=== PATIENT | female | born 1960 | race Caucasian/White ===

== ENCOUNTER 2023-01-27 18:08 | Inpatient (IN) | payer BC, OTHER ==
[2023-01-27 18:18] VITALS: BMI 27.4
[2023-01-27] MEDS ORDERED: ACETAMINOPHEN 1000 MG/100 ML BAG IVPB ONE (20:47)
[2023-01-27 20:52] LABS: BASO % 0.2 % (0-2.0); EOS % 0.1 % (0-4.5); HEMATOCRIT 31.3 % (32.4-45.2); HEMOGLOBIN 9.6 GM/dL (10.7-15.3); LYMPH % 5.3 % (8-40); MCHC 30.8 g/dl (32.0-36.0); MEAN CELL VOLUME 81.4 fl (80-96); MEAN PLT VOLUME 6.4 fl (7.5-11.1); MONO % 4.2 % (3.8-10.2); NEUT % 90.2 % (42.8-82.8); PLATELET COUNT 625 10^3/uL (134-434); RBC 3.84 M/mm3 (3.60-5.2); RDW 17.7 % (11.6-15.6); WHITE BLOOD COUNT 11.8 K/mm3 (4.0-10.0)
[2023-01-27 20:55] LABS: EPI CELLS 22 /uL (0-25.1); HYALINE CASTS 0 /uL (0-3.1); URINE APPEARANCE CLEAR; URINE BACTERIA 82 /uL (0-1359); URINE BILIRUBIN NEGATIVE (NEGATIVE); URINE COLOR YELLOW; URINE GLUCOSE (UA) NEGATIVE (NEGATIVE); URINE KETONE NEGATIVE (NEGATIVE); URINE LEUK ESTERASE TRACE (NEGATIVE); URINE NITRITE NEGATIVE (NEGATIVE); URINE PROTEIN TRACE (NEGATIVE); URINE RBC 13 /uL (0-23.9); URINE WBC 21 /uL (0-25.8)
[2023-01-27] MEDS ORDERED: ACETAMINOPHEN INJECTION 100 ML IVPB ONE (20:57)
[2023-01-27] MEDS ORDERED: PIPERACILLIN/TAZOB 3.375 GM 3.375 GM in DEXTROSE 5%-WATER - 50 ML IVPB ONE (20:58)
[2023-01-27] MEDS ORDERED: VANCOMYCIN 1 GM in D5W (PRE-DOCKED) 1,000 MG/250 ML (RESTRICTED TO ID ONLY IVPB ONE (21:02)
[2023-01-27] MEDS ORDERED: LACTATED RINGERS SOLUTION 1,000 ML/1,000 ML INFUS.BAG IV STA (21:03)
[2023-01-27 21:07] LABS: INR 1.53 (0.83-1.09); PROTHROMBIN TIME (PATIENT) 17.7 SEC (9.7-13.0)
[2023-01-27] MEDS ORDERED: PIPERACILLIN/TAZOB 3.375 GM 3.375 GM/50 ML BAG IVPB ONE (21:08)
[2023-01-27] MEDS ORDERED: VANCOMYCIN/WATER FOR INJ (PEG) 1,000 MG/200 ML BAG IVPB ONE (21:08)
[2023-01-27 21:10] LABS: ACTIVATED PTT 46.4 SECONDS (25.2-36.5)
[2023-01-27 21:13] LABS: CHLORIDE 105 mmol/L (98-107); POTASSIUM 3.6 mmol/L (3.5-5.1); SODIUM 141 mmol/L (136-145)
[2023-01-27 21:16] LABS: ALBUMIN 2.3 g/dl (3.4-5.0); ANION GAP 9 MMOL/L (8-16); CALCIUM 8.6 mg/dL (8.5-10.1); CO2 27 mmol/L (21-32); GLUCOSE,RANDOM 98 mg/dL (74-106); LIPASE 25 U/L (73-393)
[2023-01-27 21:19] LABS: CREATININE 0.9 mg/dL (0.55-1.3); SGOT/AST 19 U/L (15-37); SGPT/ALT 23 U/L (13-61)
[2023-01-27 21:21] LABS: BILIRUBIN,TOTAL 0.6 mg/dL (0.2-1); TOT PROT 6.4 g/dl (6.4-8.2)
[2023-01-27 21:22] LABS: ALK PHOS 148 U/L (45-117)
[2023-01-28] MEDS ORDERED: morphine CARPU-JECT 4 MG/1 ML DISP.SYRIN IVPUSH ONE (00:09)
[2023-01-28] MEDS ORDERED: morphine SULFATE 4 MG/ML VIAL ONE (00:26)
[2023-01-28] MEDS: ACETAMINOPHEN 1000 MG/100 ML BAG IVPB PRN ×2 (03:40→12:53)
[2023-01-28] MEDS ORDERED: SODIUM CHLORIDE 1,000 ML IV SCH (04:30)
[2023-01-28] MEDS ORDERED: PIPERACILLIN/TAZOB 3.375 GM 3.375 GM/50 ML BAG IVPB ONE (05:52)
[2023-01-28] MEDS: PIPERACILLIN/TAZOB 3.375 GM 3.375 GM in DEXTROSE 5%-WATER - 50 ML IVPB SCH ×5 (06:05→19:32)
[2023-01-28 06:45] LABS: MCH 25.9 pg (25.7-33.7); MCHC 31.4 g/dl (32.0-36.0); MEAN CELL VOLUME 82.5 fl (80-96); MEAN PLT VOLUME 6.7 fl (7.5-11.1); PLATELET COUNT 674 10^3/uL (134-434); RBC 3.88 M/mm3 (3.60-5.2); RDW 17.7 % (11.6-15.6); WHITE BLOOD COUNT 25.5 K/mm3 (4.0-10.0)
[2023-01-28 06:52] LABS: POTASSIUM 3.8 mmol/L (3.5-5.1)
[2023-01-28 06:55] LABS: BLOOD UREA NITROGEN 14.5 mg/dL (7-18); MAGNESIUM 1.9 mg/dL (1.8-2.4)
[2023-01-28 06:58] LABS: CREATININE 1.1 mg/dL (0.55-1.3); PHOSPHOROUS 5.7 mg/dL (2.5-4.9)
[2023-01-28 07:00] LABS: BILIRUBIN,TOTAL 0.9 mg/dL (0.2-1); TOT PROT 5.8 g/dl (6.4-8.2)
[2023-01-28 07:01] LABS: LACTIC ACID 2.8 mmol/L (0.4-2.0)
[2023-01-28 09:22] LABS: ERYTHROCYTE SEDIMENTATION RATE 65 mm/hr (0-30)
[2023-01-28] MEDS ORDERED: LACTATED RINGERS SOLUTION 1000 ML INFUS.BAG IV ONE (09:22)
[2023-01-28] MEDS ORDERED: VANCOMYCIN 1 GM in D5W (PRE-DOCKED) 1,000 MG/250 ML (RESTRICTED TO ID ONLY IVPB SCH (10:00)
[2023-01-28] MEDS ORDERED: VANCOMYCIN 1,000 MG in DEXTROSE 5%-WATER - 250 ML IVPB SCH (10:00)
[2023-01-28] MEDS ORDERED: VANCOMYCIN/WATER FOR INJ (PEG) 1,000 MG/200 ML BAG IVPB SCH (10:03)
[2023-01-28] MEDS ORDERED: MIDAZOLAM HCL 2 MG/2 ML SINGLE DOSE VIAL ONE (10:36)
[2023-01-28] MEDS ORDERED: FENTANYL CITRATE/PF 50 MCG/ML VIAL ONE (10:36)
[2023-01-28] MEDS ORDERED: MIDAZOLAM HCL 2 MG/2 ML SINGLE DOSE VIAL IVPUSH ONE (11:40)
[2023-01-28] MEDS ORDERED: FENTANYL CITRATE/PF 50 MCG/ML VIAL IVPUSH ONE (11:40)
[2023-01-28] MEDS: FLUCONAZOLE 200 MG/NS 100 ML IVPB SCH (18:40)
[2023-01-28] MEDS: SIMETHICONE 80 MG TAB.CHEW (FP) PO PRN (18:40)
[2023-01-28] MEDS ORDERED: DEXTROSE 5%-LACTATED RINGERS 1,000 ML IV SCH ×2 (18:45)
[2023-01-29] MEDS: PIPERACILLIN/TAZOB 3.375 GM 3.375 GM in DEXTROSE 5%-WATER - 50 ML IVPB SCH ×3 (01:51→21:59)
[2023-01-29] MEDS: SIMETHICONE 80 MG TAB.CHEW (FP) PO PRN ×2 (03:19→10:05)
[2023-01-29] MEDS: ACETAMINOPHEN 1000 MG/100 ML BAG IVPB PRN (04:44)
[2023-01-29 08:21] LABS: HEMATOCRIT 27.5 % (32.4-45.2); HEMOGLOBIN 8.6 GM/dL (10.7-15.3); MCH 25.2 pg (25.7-33.7); MCHC 31.2 g/dl (32.0-36.0); MEAN CELL VOLUME 80.8 fl (80-96); MEAN PLT VOLUME 6.7 fl (7.5-11.1); PLATELET COUNT 595 10^3/uL (134-434); RBC 3.41 M/mm3 (3.60-5.2); RDW 17.5 % (11.6-15.6)
[2023-01-29 08:28] LABS: CHLORIDE 108 mmol/L (98-107); POTASSIUM 3.1 mmol/L (3.5-5.1); SODIUM 142 mmol/L (136-145)
[2023-01-29 08:31] LABS: CALCIUM 7.8 mg/dL (8.5-10.1)
[2023-01-29 08:32] LABS: ANION GAP 10 MMOL/L (8-16); CO2 25 mmol/L (21-32)
[2023-01-29 08:33] LABS: ALBUMIN 1.6 g/dl (3.4-5.0); BLOOD UREA NITROGEN 29.4 mg/dL (7-18); GLUCOSE,RANDOM 109 mg/dL (74-106)
[2023-01-29 08:35] LABS: CREATININE 1.2 mg/dL (0.55-1.3); SGOT/AST 20 U/L (15-37); SGPT/ALT 16 U/L (13-61)
[2023-01-29 08:36] LABS: CHOLESTEROL < 50 mg/dL (50-200); PHOSPHOROUS 3.9 mg/dL (2.5-4.9)
[2023-01-29 08:37] LABS: HDL CHOLESTEROL 26 mg/dL (40-60); TOT PROT 5.1 g/dl (6.4-8.2)
[2023-01-29 08:38] LABS: BILIRUBIN,TOTAL 2.6 mg/dL (0.2-1); LDL CHOLESTEROL (ONLY SJRH) 9 mg/dL (5-100)
[2023-01-29 08:39] LABS: ALK PHOS 121 U/L (45-117)
[2023-01-29] MEDS ORDERED: POTASSIUM CHLORIDE ORAL LIQUID 20 MEQ/15 ML PO ONE (09:15)
[2023-01-29] MEDS ORDERED: DOCUSATE SODIUM 100 MG CAPSULE (FP) PO SCH (10:00)
[2023-01-29 11:52] LABS: GAMMA GLUTAMYL TRANSPEPTIDASE 46 U/L (5-85)
[2023-01-29] MEDS: PANTOPRAZOLE SODIUM 40 MG VIAL IVPUSH SCH (12:06)
[2023-01-29] MEDS ORDERED: ROCURONIUM BROMIDE 50 MG/5 ML SYRINGE ONE ×2 (14:33→15:25)
[2023-01-29] MEDS ORDERED: MIDAZOLAM HCL 2 MG/2 ML SINGLE DOSE VIAL ONE ×2 (14:33→16:29)
[2023-01-29] MEDS ORDERED: PROPOFOL 20 ML ONE (14:33)
[2023-01-29] MEDS ORDERED: SUCCINYLCHOLINE CHLORIDE 200 MG/10 ML SYRINGE ONE (14:33)
[2023-01-29] MEDS ORDERED: LIDOCAINE HCL/PF 2% SDV 5ML VIAL ONE (14:57)
[2023-01-29] MEDS ORDERED: DEXAMETHASONE SOD PHOSPHATE 4 MG/1 ML VIAL ONE (15:07)
[2023-01-29] MEDS ORDERED: ONDANSETRON 4 MG/2 ML VIAL ONE (15:07)
[2023-01-29] MEDS: ALBUTEROL SO4 2.5/IPRATROPIUM 0.5 INH SOL 3 ML VIAL.NEB. NEB SCH ×2 (15:10→20:30)
[2023-01-29] MEDS ORDERED: HYDROmorphone HCl 2 MG/ML VIAL ONE (15:26)
[2023-01-29] MEDS ORDERED: HEPARIN NA (PORCINE) 5,000 UNITS/ML 1ML VIAL ONE (16:34)
[2023-01-29] MEDS ORDERED: INDOCYANINE GREEN 25 MG/10 ML VIAL IVPUSH ONE (17:03)
[2023-01-29 17:30] LABS: ARTERIAL BLD GAS O2 SATURATION 99.6 % (95-98); ARTERIAL BLOOD GAS BASE EXCESS -4.7 mmol/L (-2-2); ARTERIAL BLOOD GAS PO2 252.1 mmHg (80-100); ARTERIAL BLOOD GAS pH 7.376 (7.350-7.450)
[2023-01-29] MEDS ORDERED: NOREPINEPHRINE 0.9 % NACL 8 MG/250 ML BAG IVPB SCH (19:15)
[2023-01-29] MEDS ORDERED: LACTATED RINGERS SOLUTION 1,000 ML IV SCH (20:30)
[2023-01-29 21:23] LABS: HEMATOCRIT 24.7 % (32.4-45.2); HEMOGLOBIN 7.7 GM/dL (10.7-15.3); MCH 24.7 pg (25.7-33.7); MCHC 31.2 g/dl (32.0-36.0); MEAN CELL VOLUME 79.3 fl (80-96); MEAN PLT VOLUME 6.4 fl (7.5-11.1); PLATELET COUNT 588 10^3/uL (134-434); RBC 3.11 M/mm3 (3.60-5.2); RDW 17.7 % (11.6-15.6)
[2023-01-29 21:32] LABS: INR 1.91 (0.83-1.09)
[2023-01-29 21:32] LABS: WHITE BLOOD COUNT 46.3 K/mm3 (4.0-10.0)
[2023-01-29 21:34] LABS: ACTIVATED PTT 84.2 SECONDS (25.2-36.5)
[2023-01-29 21:46] LABS: ARTERIAL BLD GAS O2 SATURATION 98.5 % (95-98); ARTERIAL BLOOD GAS BASE EXCESS -2.8 mmol/L (-2-2); ARTERIAL BLOOD GAS PO2 139.3 mmHg (80-100); ARTERIAL BLOOD GAS pH 7.295 (7.350-7.450)
[2023-01-29 21:46] LABS: POTASSIUM 4.2 mmol/L (3.5-5.1)
[2023-01-29 21:47] LABS: CALCIUM 7.2 mg/dL (8.5-10.1)
[2023-01-29 21:48] LABS: BLOOD UREA NITROGEN 29.4 mg/dL (7-18); MAGNESIUM 1.9 mg/dL (1.8-2.4)
[2023-01-29 21:50] LABS: VENT MODE A/C; VENT RATE 12
[2023-01-29 21:50] LABS: BILIRUBIN,DIRECT 1.1 mg/dL (0.0-0.2)
[2023-01-29 21:51] LABS: PHOSPHOROUS 4.5 mg/dL (2.5-4.9)
[2023-01-29 21:52] LABS: BILIRUBIN,TOTAL 1.6 mg/dL (0.2-1); TOT PROT 3.6 g/dl (6.4-8.2)
[2023-01-29 21:53] LABS: ALBUMIN 1.1 g/dl (3.4-5.0)
[2023-01-29] MEDS: HEPARIN NA (PORCINE) 5,000 UNITS/ML 1ML VIAL SQ SCH ×2 (21:59→22:32)
[2023-01-29] MEDS: FLUCONAZOLE 200 MG/NS 100 ML IVPB SCH (22:00)
[2023-01-29] MEDS: KCL 10 MEQ IVPB 10 MEQ/100 ML INFUS.BAG IVPB SCH (22:00)
[2023-01-29] MEDS ORDERED: LACTATED RINGERS SOLUTION 1,000 ML/1,000 ML INFUS.BAG IV STA (22:27)
[2023-01-29] MEDS ORDERED: FENTANYL IVPB 500 MCG/100 ML BAG IVPB SCH (22:30)
[2023-01-29] MEDS ORDERED: FENTANYL NS IVPB 500 MCG/100 ML BAG IVPB ONE (22:31)
[2023-01-30] MEDS ORDERED: LACTATED RINGERS SOLUTION 1,000 ML IV SCH ×3 (00:03→20:39)
[2023-01-30] MEDS ORDERED: NOREPINEPHRINE BITARTRATE 4 MG/4 ML ML IV ONE (00:54)
[2023-01-30] MEDS ORDERED: LACTATED RINGERS SOLUTION 1,000 ML/1,000 ML INFUS.BAG IV ONE (00:54)
[2023-01-30] MEDS ORDERED: PHYTONADIONE 10 MG/1 ML AMP IVPB SCH (01:00)
[2023-01-30] MEDS ORDERED: NOREPINEPHRINE BITARTRATE 4,000 MCG in DEXTROSE 5%-WATER - 496 ML IV SCH (01:00)
[2023-01-30] MEDS: PIPERACILLIN/TAZOB 3.375 GM 3.375 GM in DEXTROSE 5%-WATER - 50 ML IVPB SCH ×3 (01:07→17:23)
[2023-01-30] MEDS ORDERED: MIDAZOLAM HCL 2 MG/2 ML SINGLE DOSE VIAL IVPUSH PRN (04:40)
[2023-01-30] MEDS ORDERED: fentaNYL CITRATE 250 MCG/5 ML VIAL ONE (04:49)
[2023-01-30] MEDS: HEPARIN NA (PORCINE) 5,000 UNITS/ML 1ML VIAL SQ SCH ×3 (05:04→21:10)
[2023-01-30] MEDS ORDERED: FENTANYL CITRATE/PF 50 MCG/ML VIAL IVPUSH PRN (06:21)
[2023-01-30] MEDS: FENTANYL NS IVPB 500 MCG/100 ML BAG IVPB SCH (06:32)
[2023-01-30 06:33] LABS: ARTERIAL BLD GAS O2 SATURATION 98.8 % (95-98); ARTERIAL BLOOD GAS PO2 146.2 mmHg (80-100); ARTERIAL BLOOD GAS pH 7.378 (7.350-7.450)
[2023-01-30 07:05] LABS: VENT MODE V-A/C; VENT RATE 16
[2023-01-30 08:06] LABS: HEMATOCRIT 26.7 % (32.4-45.2); HEMOGLOBIN 8.4 GM/dL (10.7-15.3); MCH 25.7 pg (25.7-33.7); MCHC 31.6 g/dl (32.0-36.0); MEAN CELL VOLUME 81.4 fl (80-96); MEAN PLT VOLUME 7.1 fl (7.5-11.1); PLATELET COUNT 612 10^3/uL (134-434); RBC 3.28 M/mm3 (3.60-5.2); RDW 17.1 % (11.6-15.6)
[2023-01-30 08:11] LABS: WHITE BLOOD COUNT 35.9 K/mm3 (4.0-10.0)
[2023-01-30 08:38] LABS: POTASSIUM 4.1 mmol/L (3.5-5.1)
[2023-01-30 08:40] LABS: CALCIUM 7.1 mg/dL (8.5-10.1)
[2023-01-30 08:41] LABS: ALBUMIN 1.2 g/dl (3.4-5.0); BLOOD UREA NITROGEN 32.1 mg/dL (7-18); MAGNESIUM 2.1 mg/dL (1.8-2.4)
[2023-01-30 08:44] LABS: CREATININE 1.2 mg/dL (0.55-1.3); PHOSPHOROUS 4.1 mg/dL (2.5-4.9)
[2023-01-30] MEDS: ALBUTEROL SO4 2.5/IPRATROPIUM 0.5 INH SOL 3 ML VIAL.NEB. NEB SCH ×4 (08:45→20:37)
[2023-01-30 08:46] LABS: BILIRUBIN,TOTAL 1.7 mg/dL (0.2-1)
[2023-01-30 08:53] LABS: ANISOCYTOSIS 0; HELMET CELLS 0; HOWELL-JOLLY BODIES 0; MACROCYTOSIS 0; OVALOCYTE 0; ROULEAU 0; SICKELED CELLS 0; TARGET CELLS 0; TEAR DROP CELLS 0; TOXIC GRANULATION 0
[2023-01-30] MEDS: PANTOPRAZOLE SODIUM 40 MG VIAL IVPUSH SCH (10:06)
[2023-01-30] MEDS: FLUCONAZOLE 200 MG/NS 100 ML IVPB SCH (11:03)
[2023-01-30] MEDS ORDERED: LACTATED RINGERS SOLUTION 1,000 ML/1,000 ML INFUS.BAG IV STA (11:54)
[2023-01-31] MEDS: PIPERACILLIN/TAZOB 3.375 GM 3.375 GM in DEXTROSE 5%-WATER - 50 ML IVPB SCH ×3 (01:16→17:09)
[2023-01-31] MEDS: FENTANYL NS IVPB 500 MCG/100 ML BAG IVPB SCH ×2 (02:00→06:38)
[2023-01-31] MEDS: HEPARIN NA (PORCINE) 5,000 UNITS/ML 1ML VIAL SQ SCH ×3 (06:03→21:20)
[2023-01-31] MEDS: ALBUTEROL SO4 2.5/IPRATROPIUM 0.5 INH SOL 3 ML VIAL.NEB. NEB SCH ×4 (07:43→19:37)
[2023-01-31 08:05] LABS: HEMATOCRIT 22.7 % (32.4-45.2); HEMOGLOBIN 7.3 GM/dL (10.7-15.3); MCHC 32.3 g/dl (32.0-36.0); MEAN CELL VOLUME 80.5 fl (80-96); MEAN PLT VOLUME 6.9 fl (7.5-11.1); PLATELET COUNT 470 10^3/uL (134-434); RBC 2.82 M/mm3 (3.60-5.2); RDW 17.4 % (11.6-15.6); WHITE BLOOD COUNT 20.8 K/mm3 (4.0-10.0)
[2023-01-31 08:07] LABS: POTASSIUM 3.6 mmol/L (3.5-5.1)
[2023-01-31 08:09] LABS: CALCIUM 7.3 mg/dL (8.5-10.1)
[2023-01-31 08:10] LABS: ALBUMIN 1.2 g/dl (3.4-5.0); MAGNESIUM 2.2 mg/dL (1.8-2.4)
[2023-01-31 08:12] LABS: CREATININE 0.8 mg/dL (0.55-1.3)
[2023-01-31 08:13] LABS: PHOSPHOROUS 2.4 mg/dL (2.5-4.9)
[2023-01-31 08:14] LABS: BILIRUBIN,TOTAL 0.6 mg/dL (0.2-1); TOT PROT 4.2 g/dl (6.4-8.2)
[2023-01-31] MEDS: FLUCONAZOLE 200 MG/NS 100 ML IVPB SCH (09:30)
[2023-01-31] MEDS: PANTOPRAZOLE SODIUM 40 MG VIAL IVPUSH SCH (09:30)
[2023-01-31 09:45] LABS: ANISOCYTOSIS 2+; MACROCYTOSIS 0
[2023-01-31] MEDS: ACETAMINOPHEN 1000 MG/100 ML BAG IVPB PRN (13:33)
[2023-01-31] MEDS ORDERED: LORazepam 2 MG/ML SDV VIAL IVPUSH ONE (15:21)
[2023-01-31] MEDS ORDERED: AMINO ACIDS 4.25%/D5W 1,000 ML IV SCH ×2 (15:30→16:41)
[2023-01-31] MEDS: LACTATED RINGERS SOLUTION 1,000 ML IV SCH (15:35)
[2023-01-31] MEDS ORDERED: POTASSIUM PHOSPHATE 15 MM in DEXTROSE 5%-WATER - 250 ML IVPB ONE (16:40)
[2023-01-31 17:01] LABS: BASO % 0.1 % (0-2.0); EOS % 0.5 % (0-4.5); HEMATOCRIT 22.9 % (32.4-45.2); HEMOGLOBIN 7.2 GM/dL (10.7-15.3); LYMPH % 5.7 % (8-40); MCH 25.1 pg (25.7-33.7); MCHC 31.4 g/dl (32.0-36.0); MEAN CELL VOLUME 79.9 fl (80-96); MEAN PLT VOLUME 6.6 fl (7.5-11.1); MONO % 2.9 % (3.8-10.2); NEUT % 90.8 % (42.8-82.8); PLATELET COUNT 469 10^3/uL (134-434); RBC 2.86 M/mm3 (3.60-5.2); RDW 17.5 % (11.6-15.6); WHITE BLOOD COUNT 20.1 K/mm3 (4.0-10.0)
[2023-01-31 17:32] LABS: ANISOCYTOSIS 3+; MACROCYTOSIS 0; TARGET CELLS 2+
[2023-02-01] MEDS: PIPERACILLIN/TAZOB 3.375 GM 3.375 GM in DEXTROSE 5%-WATER - 50 ML IVPB SCH ×3 (01:35→17:23)
[2023-02-01] MEDS: HEPARIN NA (PORCINE) 5,000 UNITS/ML 1ML VIAL SQ SCH ×3 (05:13→21:16)
[2023-02-01] MEDS ORDERED: AMIODARONE HCL 150 MG/3 ML VIAL IVPUSH ONE (05:29)
[2023-02-01] MEDS ORDERED: AMIODARONE IN DEXTROSE,ISO-OSM 150 MG/100 ML BAG ONE (05:43)
[2023-02-01] MEDS ORDERED: AMIODARONE HCL INJECTION 150 MG in DEXTROSE 5%-WATER - 100 ML IVPB ONE (05:45)
[2023-02-01] MEDS ORDERED: AMIODARONE IN DEXTROSE,ISO-OSM 360 MG/200 ML BAG IV SCH ×3 (05:45→14:00)
[2023-02-01 07:48] LABS: HEMATOCRIT 24.5 % (32.4-45.2); HEMOGLOBIN 7.7 GM/dL (10.7-15.3); MCH 25.4 pg (25.7-33.7); MCHC 31.3 g/dl (32.0-36.0); MEAN CELL VOLUME 81.4 fl (80-96); MEAN PLT VOLUME 6.9 fl (7.5-11.1); PLATELET COUNT 472 10^3/uL (134-434); RBC 3.02 M/mm3 (3.60-5.2); RDW 17.5 % (11.6-15.6); WHITE BLOOD COUNT 20.5 K/mm3 (4.0-10.0)
[2023-02-01] MEDS: ALBUTEROL SO4 2.5/IPRATROPIUM 0.5 INH SOL 3 ML VIAL.NEB. NEB SCH ×4 (08:05→20:45)
[2023-02-01 08:07] LABS: POTASSIUM 3.4 mmol/L (3.5-5.1)
[2023-02-01 08:10] LABS: CALCIUM 7.5 mg/dL (8.5-10.1)
[2023-02-01 08:11] LABS: ALBUMIN 1.3 g/dl (3.4-5.0); BLOOD UREA NITROGEN 18.6 mg/dL (7-18); MAGNESIUM 1.9 mg/dL (1.8-2.4)
[2023-02-01 08:14] LABS: CREATININE 0.6 mg/dL (0.55-1.3); PHOSPHOROUS 1.8 mg/dL (2.5-4.9)
[2023-02-01 08:15] LABS: BILIRUBIN,TOTAL 0.7 mg/dL (0.2-1)
[2023-02-01] MEDS ORDERED: KCL 10 MEQ IVPB 10 MEQ/100 ML INFUS.BAG IVPB SCH (08:15)
[2023-02-01 08:16] LABS: TOT PROT 4.6 g/dl (6.4-8.2)
[2023-02-01 08:43] LABS: ANISOCYTOSIS 0; MACROCYTOSIS 0
[2023-02-01] MEDS ORDERED: dilTIAZem HCL 50 MG/10 ML - 10 ML VIAL IVPUSH ONE ×2 (08:48)
[2023-02-01] MEDS ORDERED: POTASSIUM PHOSPHATE 30 MM in SODIUM CHLORIDE 500 ML IVPB ONE (09:00)
[2023-02-01] MEDS: PANTOPRAZOLE SODIUM 40 MG VIAL IVPUSH SCH (09:31)
[2023-02-01] MEDS: FLUCONAZOLE 200 MG/NS 100 ML IVPB SCH (10:24)
[2023-02-01] MEDS: AMIODARONE IN DEXTROSE,ISO-OSM 360 MG/200 ML BAG IV SCH (14:15)
[2023-02-01] MEDS: WATER FOR INJ STERILE IV SCH ×2 (14:52→16:36)
[2023-02-01] MEDS: MULTIVIT IV SCH ×2 (14:52→16:36)
[2023-02-01] MEDS: [UNRECOGNIZED DRUG - OTHER] IV SCH ×2 (14:52→16:36)
[2023-02-01] MEDS: ACETAMINOPHEN 1000 MG/100 ML BAG IVPB PRN (16:02)
[2023-02-01] MEDS: LACTATED RINGERS SOLUTION 1,000 ML IV SCH ×2 (16:02→16:14)
[2023-02-02] MEDS: AMIODARONE IN DEXTROSE,ISO-OSM 360 MG/200 ML BAG IV SCH
[2023-02-02] MEDS: PIPERACILLIN/TAZOB 3.375 GM 3.375 GM in DEXTROSE 5%-WATER - 50 ML IVPB SCH ×3 (02:06→17:13)
[2023-02-02] MEDS: HEPARIN NA (PORCINE) 5,000 UNITS/ML 1ML VIAL SQ SCH ×3 (05:42→22:16)
[2023-02-02 07:48] LABS: HEMATOCRIT 23.6 % (32.4-45.2); HEMOGLOBIN 7.6 GM/dL (10.7-15.3); MCH 26.7 pg (25.7-33.7); MEAN CELL VOLUME 83.4 fl (80-96); MEAN PLT VOLUME 7.1 fl (7.5-11.1); PLATELET COUNT 467 10^3/uL (134-434); RBC 2.83 M/mm3 (3.60-5.2); RDW 17.4 % (11.6-15.6); WHITE BLOOD COUNT 17.5 K/mm3 (4.0-10.0)
[2023-02-02 08:12] LABS: POTASSIUM 3.2 mmol/L (3.5-5.1)
[2023-02-02 08:16] LABS: CALCIUM 7.3 mg/dL (8.5-10.1)
[2023-02-02 08:17] LABS: ALBUMIN 1.3 g/dl (3.4-5.0); BLOOD UREA NITROGEN 13.7 mg/dL (7-18); MAGNESIUM 1.6 mg/dL (1.8-2.4)
[2023-02-02 08:20] LABS: CREATININE 0.5 mg/dL (0.55-1.3); PHOSPHOROUS 1.8 mg/dL (2.5-4.9)
[2023-02-02 08:21] LABS: BILIRUBIN,TOTAL 0.5 mg/dL (0.2-1); TOT PROT 4.4 g/dl (6.4-8.2)
[2023-02-02] MEDS: ALBUTEROL SO4 2.5/IPRATROPIUM 0.5 INH SOL 3 ML VIAL.NEB. NEB SCH ×4 (08:39→21:14)
[2023-02-02] MEDS: PANTOPRAZOLE SODIUM 40 MG VIAL IVPUSH SCH (09:06)
[2023-02-02] MEDS: FLUCONAZOLE 200 MG/NS 100 ML IVPB SCH (10:55)
[2023-02-02] MEDS ORDERED: MAGNESIUM SULF 50% (8.12 MEQ/2 ML-1 GM VIAL) IVPB ONE (12:30)
[2023-02-02] MEDS ORDERED: KCL 20 MEQ PREMIX BAG 100 ML IVPB ONE (13:00)
[2023-02-02] MEDS ORDERED: POTASSIUM PHOSPHATE 30 MM in DEXTROSE 5%-WATER - 250 ML IVPB ONE (13:00)
[2023-02-02] MEDS: LYTES/YERBA SANTA 60 ML SPRAY MM SCH ×2 (14:20→21:41)
[2023-02-02] MEDS ORDERED: [UNRECOGNIZED DRUG - OTHER] IVPB SCH (16:00)
[2023-02-02] MEDS ORDERED: POTASSIUM PHOSPHATE IVPB SCH (16:00)
[2023-02-02] MEDS ORDERED: POTASSIUM CHLORIDE IVPB SCH (16:00)
[2023-02-02] MEDS ORDERED: SODIUM CHLORIDE IVPB SCH (16:00)
[2023-02-02] MEDS: LACTATED RINGERS SOLUTION 1,000 ML IV SCH (17:13)
[2023-02-02] MEDS ORDERED: FAT EMUL/SOY/MCT/OLIV/FISH OIL 250 ML IV SCH (22:00)
[2023-02-03] MEDS ORDERED: LACTATED RINGERS SOLUTION 1,000 ML IV SCH (04:07)
[2023-02-03] MEDS ORDERED: ACETAMINOPHEN 1000 MG/100 ML BAG IVPB PRN (04:07)
[2023-02-03] MEDS: PIPERACILLIN/TAZOB 3.375 GM 3.375 GM in DEXTROSE 5%-WATER - 50 ML IVPB SCH ×3 (05:44→17:22)
[2023-02-03] MEDS: HEPARIN NA (PORCINE) 5,000 UNITS/ML 1ML VIAL SQ SCH ×3 (06:53→21:20)
[2023-02-03 07:34] LABS: HEMATOCRIT 23.1 % (32.4-45.2); HEMOGLOBIN 7.7 GM/dL (10.7-15.3); MCH 28.3 pg (25.7-33.7); MCHC 33.2 g/dl (32.0-36.0); MEAN CELL VOLUME 85.3 fl (80-96); PLATELET COUNT 481 10^3/uL (134-434); RDW 17.5 % (11.6-15.6); WHITE BLOOD COUNT 14.9 K/mm3 (4.0-10.0)
[2023-02-03 07:51] LABS: POTASSIUM 3.6 mmol/L (3.5-5.1)
[2023-02-03 07:56] LABS: BLOOD UREA NITROGEN 10.5 mg/dL (7-18)
[2023-02-03 07:57] LABS: MAGNESIUM 1.7 mg/dL (1.8-2.4)
[2023-02-03 07:59] LABS: CREATININE 0.4 mg/dL (0.55-1.3)
[2023-02-03] MEDS: ALBUTEROL SO4 2.5/IPRATROPIUM 0.5 INH SOL 3 ML VIAL.NEB. NEB SCH ×4 (08:34→21:15)
[2023-02-03 08:43] LABS: ANISOCYTOSIS 2+; MACROCYTOSIS 0
[2023-02-03] MEDS ORDERED: MAGNESIUM SULF 50% (8.12 MEQ/2 ML-1 GM VIAL) IVPB ONE (08:56)
[2023-02-03] MEDS ORDERED: METOPROLOL TARTRATE 25 MG TABLET (FP) PO ONE (08:56)
[2023-02-03] MEDS ORDERED: POTASSIUM CHLORIDE ORAL LIQUID 20 MEQ/15 ML PO ONE (08:57)
[2023-02-03] MEDS: FLUCONAZOLE 200 MG/NS 100 ML IVPB SCH (10:02)
[2023-02-03] MEDS: PANTOPRAZOLE SODIUM 40 MG VIAL IVPUSH SCH (10:02)
[2023-02-03] MEDS: LYTES/YERBA SANTA 60 ML SPRAY MM SCH ×2 (10:02→21:24)
[2023-02-03] MEDS ORDERED: [UNRECOGNIZED DRUG - OTHER] IVPB SCH ×2 (16:00)
[2023-02-03] MEDS ORDERED: POTASSIUM PHOSPHATE IVPB SCH ×2 (16:00)
[2023-02-03] MEDS ORDERED: SODIUM CHLORIDE IVPB SCH ×2 (16:00)
[2023-02-03] MEDS ORDERED: POTASSIUM CHLORIDE IVPB SCH ×2 (16:00)
[2023-02-03] MEDS: METOPROLOL TARTRATE 25 MG TABLET (FP) PO SCH (21:20)
[2023-02-03] MEDS ORDERED: FAT EMUL/SOY/MCT/OLIV/FISH OIL 250 ML IV SCH ×2 (22:00)
[2023-02-03] MEDS: SIMETHICONE 80 MG TAB.CHEW (FP) PO PRN (23:49)
[2023-02-04] MEDS: PIPERACILLIN/TAZOB 3.375 GM 3.375 GM in DEXTROSE 5%-WATER - 50 ML IVPB SCH ×3 (01:59→17:57)
[2023-02-04] MEDS: HEPARIN NA (PORCINE) 5,000 UNITS/ML 1ML VIAL SQ SCH ×3 (05:54→21:42)
[2023-02-04 07:36] LABS: POTASSIUM 3.7 mmol/L (3.5-5.1)
[2023-02-04 07:38] LABS: CALCIUM 7.6 mg/dL (8.5-10.1)
[2023-02-04 07:39] LABS: ALBUMIN 1.5 g/dl (3.4-5.0); MAGNESIUM 1.9 mg/dL (1.8-2.4)
[2023-02-04 07:42] LABS: CREATININE 0.4 mg/dL (0.55-1.3); PHOSPHOROUS 2.4 mg/dL (2.5-4.9)
[2023-02-04 07:43] LABS: BILIRUBIN,TOTAL 0.5 mg/dL (0.2-1); TOT PROT 4.9 g/dl (6.4-8.2)
[2023-02-04] MEDS: ALBUTEROL SO4 2.5/IPRATROPIUM 0.5 INH SOL 3 ML VIAL.NEB. NEB SCH ×4 (08:15→20:56)
[2023-02-04] MEDS: FLUCONAZOLE 200 MG/NS 100 ML IVPB SCH (10:04)
[2023-02-04] MEDS: LYTES/YERBA SANTA 60 ML SPRAY MM SCH ×2 (10:04→21:43)
[2023-02-04] MEDS: PANTOPRAZOLE SODIUM 40 MG VIAL IVPUSH SCH (10:04)
[2023-02-04] MEDS: METOPROLOL TARTRATE 25 MG TABLET (FP) PO SCH ×2 (10:04→21:42)
[2023-02-04] MEDS ORDERED: POTASSIUM CHLORIDE ORAL LIQUID 20 MEQ/15 ML PO ONE (10:30)
[2023-02-04] MEDS ORDERED: SODIUM CHLORIDE IVPB SCH (16:00)
[2023-02-04] MEDS ORDERED: [UNRECOGNIZED DRUG - OTHER] IVPB SCH (16:00)
[2023-02-04] MEDS ORDERED: POTASSIUM CHLORIDE IVPB SCH (16:00)
[2023-02-04] MEDS ORDERED: POTASSIUM PHOSPHATE IVPB SCH (16:00)
[2023-02-04] MEDS ORDERED: POTASSIUM PHOSPHATE 15 MM in DEXTROSE 5%-WATER - 250 ML IVPB ONE (16:37)
[2023-02-04] MEDS: SIMETHICONE 80 MG TAB.CHEW (FP) PO PRN (19:33)
[2023-02-04] MEDS ORDERED: FAT EMUL/SOY/MCT/OLIV/FISH OIL 250 ML IV SCH (22:00)
[2023-02-05] MEDS: SIMETHICONE 80 MG TAB.CHEW (FP) PO PRN ×2 (02:03→22:53)
[2023-02-05] MEDS: PIPERACILLIN/TAZOB 3.375 GM 3.375 GM in DEXTROSE 5%-WATER - 50 ML IVPB SCH ×3 (02:03→17:22)
[2023-02-05] MEDS: HEPARIN NA (PORCINE) 5,000 UNITS/ML 1ML VIAL SQ SCH ×3 (05:57→22:52)
[2023-02-05] MEDS ORDERED: ACETAMINOPHEN 1000 MG/100 ML BAG IVPB PRN (07:39)
[2023-02-05] MEDS: ALBUTEROL SO4 2.5/IPRATROPIUM 0.5 INH SOL 3 ML VIAL.NEB. NEB SCH ×4 (08:10→20:15)
[2023-02-05 08:58] LABS: POTASSIUM 4.5 mmol/L (3.5-5.1)
[2023-02-05 09:02] LABS: ALBUMIN 1.6 g/dl (3.4-5.0); BLOOD UREA NITROGEN 10.8 mg/dL (7-18); CALCIUM 7.5 mg/dL (8.5-10.1); MAGNESIUM 1.9 mg/dL (1.8-2.4)
[2023-02-05 09:05] LABS: CREATININE 0.4 mg/dL (0.55-1.3); PHOSPHOROUS 2.8 mg/dL (2.5-4.9)
[2023-02-05 09:06] LABS: TOT PROT 5.3 g/dl (6.4-8.2)
[2023-02-05 09:07] LABS: BILIRUBIN,TOTAL 0.5 mg/dL (0.2-1)
[2023-02-05] MEDS: PANTOPRAZOLE SODIUM 40 MG VIAL IVPUSH SCH (09:20)
[2023-02-05] MEDS: METOPROLOL TARTRATE 25 MG TABLET (FP) PO SCH ×2 (09:21→22:53)
[2023-02-05] MEDS: LYTES/YERBA SANTA 60 ML SPRAY MM SCH ×2 (09:30→22:11)
[2023-02-05] MEDS: FLUCONAZOLE 200 MG/NS 100 ML IVPB SCH (11:22)
[2023-02-05] MEDS ORDERED: POTASSIUM PHOSPHATE IVPB SCH (16:00)
[2023-02-05] MEDS ORDERED: SODIUM CHLORIDE IVPB SCH (16:00)
[2023-02-05] MEDS ORDERED: MAGNESIUM SULFATE IVPB SCH (16:00)
[2023-02-05] MEDS ORDERED: [UNRECOGNIZED DRUG - OTHER] IVPB SCH (16:00)
[2023-02-05] MEDS ORDERED: FAT EMUL/SOY/MCT/OLIV/FISH OIL 250 ML IV SCH (22:00)
[2023-02-06] MEDS: PIPERACILLIN/TAZOB 3.375 GM 3.375 GM in DEXTROSE 5%-WATER - 50 ML IVPB SCH ×3 (01:55→17:43)
[2023-02-06] MEDS: HEPARIN NA (PORCINE) 5,000 UNITS/ML 1ML VIAL SQ SCH ×3 (06:19→22:02)
[2023-02-06] MEDS: ALBUTEROL SO4 2.5/IPRATROPIUM 0.5 INH SOL 3 ML VIAL.NEB. NEB SCH ×4 (07:50→19:51)
[2023-02-06 10:04] LABS: HEMATOCRIT 28.5 % (32.4-45.2); HEMOGLOBIN 9.1 GM/dL (10.7-15.3); MCH 27.5 pg (25.7-33.7); MCHC 31.8 g/dl (32.0-36.0); MEAN CELL VOLUME 86.4 fl (80-96); MEAN PLT VOLUME 7.3 fl (7.5-11.1); PLATELET COUNT 700 10^3/uL (134-434); RDW 18.4 % (11.6-15.6); WHITE BLOOD COUNT 16.2 K/mm3 (4.0-10.0)
[2023-02-06 10:32] LABS: POTASSIUM 4.1 mmol/L (3.5-5.1)
[2023-02-06 10:33] LABS: ANISOCYTOSIS 0; MACROCYTOSIS 0
[2023-02-06 10:35] LABS: CHOLESTEROL 90 mg/dL (50-200)
[2023-02-06 10:36] LABS: CALCIUM 7.7 mg/dL (8.5-10.1); LDL CHOLESTEROL (ONLY SJRH) 28 mg/dL (5-100)
[2023-02-06 10:37] LABS: ALBUMIN 1.8 g/dl (3.4-5.0); BLOOD UREA NITROGEN 11.2 mg/dL (7-18); MAGNESIUM 1.9 mg/dL (1.8-2.4)
[2023-02-06 10:38] LABS: HDL CHOLESTEROL 47 mg/dL (40-60)
[2023-02-06 10:40] LABS: CREATININE 0.5 mg/dL (0.55-1.3); PHOSPHOROUS 2.3 mg/dL (2.5-4.9)
[2023-02-06 10:41] LABS: BILIRUBIN,TOTAL 0.5 mg/dL (0.2-1)
[2023-02-06 10:43] LABS: TOT PROT 5.7 g/dl (6.4-8.2)
[2023-02-06] MEDS: METOPROLOL TARTRATE 25 MG TABLET (FP) PO SCH ×2 (11:00→22:03)
[2023-02-06] MEDS: LYTES/YERBA SANTA 60 ML SPRAY MM SCH ×2 (11:01→22:05)
[2023-02-06] MEDS: FLUCONAZOLE 200 MG/NS 100 ML IVPB SCH (11:02)
[2023-02-06] MEDS: PANTOPRAZOLE SODIUM 40 MG VIAL IVPUSH SCH (11:21)
[2023-02-06] MEDS ORDERED: DIPHENOXYLATE 2.5/ATROPINE.025 1 COMBO TABLET PO PRN (12:16)
[2023-02-06] MEDS ORDERED: POTASSIUM PHOSPHATE 15 MM in DEXTROSE 5%-WATER - 250 ML IVPB ONE (13:00)
[2023-02-06] MEDS: PSYLLIUM 5.85 GM PACKET PO SCH ×4 (14:54→22:16)
[2023-02-07] MEDS: PIPERACILLIN/TAZOB 3.375 GM 3.375 GM in DEXTROSE 5%-WATER - 50 ML IVPB SCH ×3 (03:05→17:11)
[2023-02-07] MEDS: SIMETHICONE 80 MG TAB.CHEW (FP) PO PRN (05:03)
[2023-02-07] MEDS: HEPARIN NA (PORCINE) 5,000 UNITS/ML 1ML VIAL SQ SCH ×3 (05:03→22:03)
[2023-02-07] MEDS: PSYLLIUM 5.85 GM PACKET PO SCH ×4 (05:12→22:04)
[2023-02-07] MEDS: ALBUTEROL SO4 2.5/IPRATROPIUM 0.5 INH SOL 3 ML VIAL.NEB. NEB SCH ×4 (08:28→19:58)
[2023-02-07 09:33] LABS: BASO % 0.6 % (0-2.0); EOS % 1.1 % (0-4.5); HEMOGLOBIN 8.9 GM/dL (10.7-15.3); LYMPH % 10.6 % (8-40); MCH 27.2 pg (25.7-33.7); MCHC 31.7 g/dl (32.0-36.0); MEAN CELL VOLUME 85.9 fl (80-96); MEAN PLT VOLUME 7.1 fl (7.5-11.1); MONO % 6.7 % (3.8-10.2); PLATELET COUNT 720 10^3/uL (134-434); RBC 3.26 M/mm3 (3.60-5.2); RDW 19.1 % (11.6-15.6); WHITE BLOOD COUNT 13.5 K/mm3 (4.0-10.0)
[2023-02-07 09:47] LABS: POTASSIUM 4.4 mmol/L (3.5-5.1)
[2023-02-07 09:56] LABS: CALCIUM 8.2 mg/dL (8.5-10.1)
[2023-02-07 09:57] LABS: ALBUMIN 1.8 g/dl (3.4-5.0); BLOOD UREA NITROGEN 9.9 mg/dL (7-18)
[2023-02-07 09:58] LABS: CREATININE 0.5 mg/dL (0.55-1.3); MAGNESIUM 1.9 mg/dL (1.8-2.4)
[2023-02-07] MEDS: METOPROLOL TARTRATE 25 MG TABLET (FP) PO SCH ×2 (09:58→22:03)
[2023-02-07] MEDS: PANTOPRAZOLE SODIUM 40 MG VIAL IVPUSH SCH (09:58)
[2023-02-07 10:00] LABS: BILIRUBIN,TOTAL 0.4 mg/dL (0.2-1); TOT PROT 5.6 g/dl (6.4-8.2)
[2023-02-07] MEDS: LYTES/YERBA SANTA 60 ML SPRAY MM SCH ×2 (12:21→22:05)
[2023-02-07] MEDS: SODIUM HYPOCHLORITE 0.25%- 473 ML BULK BOTTLE TP SCH (12:21)
[2023-02-07] MEDS: metroNIDAZOLE 250 MG TABLET PO SCH ×2 (14:45→22:03)
[2023-02-07] MEDS ORDERED: BENZOCAINE 20% 57 GM BOTTLE TP ONE (15:47)
[2023-02-07] MEDS ORDERED: BENZOIN/ALOE VERA/STORAX/TOLU 58 ML BOTTLE TP ONE (15:56)
[2023-02-07] MEDS ORDERED: PIPERACILLIN/TAZOBACTAM 3.375 GM VIAL IVPB ONE (17:00)
[2023-02-08] MEDS: PIPERACILLIN/TAZOB 3.375 GM 3.375 GM in DEXTROSE 5%-WATER - 50 ML IVPB SCH ×3 (01:58→17:47)
[2023-02-08] MEDS: metroNIDAZOLE 250 MG TABLET PO SCH ×3 (07:29→22:50)
[2023-02-08] MEDS: PSYLLIUM 5.85 GM PACKET PO SCH ×3 (07:30→19:29)
[2023-02-08] MEDS: HEPARIN NA (PORCINE) 5,000 UNITS/ML 1ML VIAL SQ SCH ×3 (07:30→22:51)
[2023-02-08] MEDS: ALBUTEROL SO4 2.5/IPRATROPIUM 0.5 INH SOL 3 ML VIAL.NEB. NEB SCH ×4 (07:36→20:00)
[2023-02-08] MEDS: METOPROLOL TARTRATE 25 MG TABLET (FP) PO SCH ×2 (10:24→22:51)
[2023-02-08] MEDS: PANTOPRAZOLE 40 MG TABLET PO SCH (10:25)
[2023-02-08 10:41] LABS: BASO % 0.8 % (0-2.0); EOS % 2.1 % (0-4.5); HEMATOCRIT 27.9 % (32.4-45.2); HEMOGLOBIN 8.8 GM/dL (10.7-15.3); LYMPH % 9.4 % (8-40); MCH 27.3 pg (25.7-33.7); MCHC 31.7 g/dl (32.0-36.0); MEAN CELL VOLUME 86.1 fl (80-96); MEAN PLT VOLUME 6.8 fl (7.5-11.1); MONO % 6.9 % (3.8-10.2); NEUT % 80.8 % (42.8-82.8); PLATELET COUNT 866 10^3/uL (134-434); RBC 3.24 M/mm3 (3.60-5.2); RDW 19.8 % (11.6-15.6); WHITE BLOOD COUNT 11.9 K/mm3 (4.0-10.0)
[2023-02-08 10:59] LABS: POTASSIUM 3.9 mmol/L (3.5-5.1)
[2023-02-08 11:04] LABS: ALBUMIN 1.8 g/dl (3.4-5.0); CALCIUM 8.4 mg/dL (8.5-10.1)
[2023-02-08 11:05] LABS: BLOOD UREA NITROGEN 11.3 mg/dL (7-18)
[2023-02-08 11:07] LABS: CREATININE 0.6 mg/dL (0.55-1.3)
[2023-02-08 11:09] LABS: BILIRUBIN,TOTAL 0.3 mg/dL (0.2-1); TOT PROT 5.7 g/dl (6.4-8.2)
[2023-02-08] MEDS: SODIUM HYPOCHLORITE 0.25%- 473 ML BULK BOTTLE TP SCH (14:44)
[2023-02-08] MEDS: LYTES/YERBA SANTA 60 ML SPRAY MM SCH (15:29)
[2023-02-08] MEDS ORDERED: ACETAMINOPHEN 500 MG TABLET (FP) PO PRN (15:58)
[2023-02-09] MEDS: PSYLLIUM 5.85 GM PACKET PO SCH ×2 (00:03→06:37)
[2023-02-09] MEDS: LYTES/YERBA SANTA 60 ML SPRAY MM SCH ×3 (00:14→22:18)
[2023-02-09] MEDS: PIPERACILLIN/TAZOB 3.375 GM 3.375 GM in DEXTROSE 5%-WATER - 50 ML IVPB SCH ×3 (03:12→18:57)
[2023-02-09] MEDS: SIMETHICONE 80 MG TAB.CHEW (FP) PO PRN ×2 (03:12→22:18)
[2023-02-09] MEDS: HEPARIN NA (PORCINE) 5,000 UNITS/ML 1ML VIAL SQ SCH ×3 (06:37→22:17)
[2023-02-09] MEDS: ALBUTEROL SO4 2.5/IPRATROPIUM 0.5 INH SOL 3 ML VIAL.NEB. NEB SCH ×4 (07:24→20:15)
[2023-02-09 09:01] LABS: HEMATOCRIT 27.4 % (32.4-45.2); LYMPH % 10.9 % (8-40); MCH 27.6 pg (25.7-33.7); MCHC 32.9 g/dl (32.0-36.0); MEAN CELL VOLUME 83.9 fl (80-96); MEAN PLT VOLUME 6.3 fl (7.5-11.1); MONO % 7.6 % (3.8-10.2); NEUT % 77.5 % (42.8-82.8); PLATELET COUNT 834 10^3/uL (134-434); RBC 3.26 M/mm3 (3.60-5.2); RDW 20.7 % (11.6-15.6); WHITE BLOOD COUNT 11.5 K/mm3 (4.0-10.0)
[2023-02-09 09:19] LABS: POTASSIUM 4.1 mmol/L (3.5-5.1)
[2023-02-09 09:20] LABS: POTASSIUM 4.2 mmol/L (3.5-5.1)
[2023-02-09 09:21] LABS: CALCIUM 8.6 mg/dL (8.5-10.1)
[2023-02-09 09:22] LABS: ALBUMIN 1.9 g/dl (3.4-5.0); BLOOD UREA NITROGEN 10.1 mg/dL (7-18); CALCIUM 8.7 mg/dL (8.5-10.1)
[2023-02-09 09:25] LABS: CREATININE 0.6 mg/dL (0.55-1.3)
[2023-02-09 09:26] LABS: CREATININE 0.6 mg/dL (0.55-1.3); TOT PROT 5.9 g/dl (6.4-8.2)
[2023-02-09 09:27] LABS: BILIRUBIN,TOTAL 0.4 mg/dL (0.2-1)
[2023-02-09 09:32] LABS: ANISOCYTOSIS 3+; MACROCYTOSIS 0; TARGET CELLS 0
[2023-02-09] MEDS: metroNIDAZOLE 250 MG TABLET PO SCH ×3 (10:53→22:17)
[2023-02-09] MEDS: PANTOPRAZOLE 40 MG TABLET PO SCH (10:54)
[2023-02-09] MEDS: METOPROLOL TARTRATE 25 MG TABLET (FP) PO SCH ×2 (10:54→22:18)
[2023-02-09] MEDS: SODIUM HYPOCHLORITE 0.25%- 473 ML BULK BOTTLE TP SCH (10:54)
[2023-02-09] MEDS ORDERED: ACETAMINOPHEN 1000 MG/100 ML BAG IVPB PRN (13:11)
[2023-02-10] MEDS: PIPERACILLIN/TAZOB 3.375 GM 3.375 GM in DEXTROSE 5%-WATER - 50 ML IVPB SCH ×2 (01:50→10:26)
[2023-02-10] MEDS: HEPARIN NA (PORCINE) 5,000 UNITS/ML 1ML VIAL SQ SCH ×3 (06:12→21:09)
[2023-02-10] MEDS: metroNIDAZOLE 250 MG TABLET PO SCH ×4 (06:13→21:09)
[2023-02-10] MEDS: METOPROLOL TARTRATE 25 MG TABLET (FP) PO SCH ×2 (10:26→21:09)
[2023-02-10] MEDS: PANTOPRAZOLE 40 MG TABLET PO SCH (10:26)
[2023-02-10] MEDS: LYTES/YERBA SANTA 60 ML SPRAY MM SCH ×2 (10:27→21:10)
[2023-02-10] MEDS: SODIUM HYPOCHLORITE 0.25%- 473 ML BULK BOTTLE TP SCH (10:28)
[2023-02-10] MEDS ORDERED: LACTATED RINGERS SOLUTION 1,000 ML/1,000 ML INFUS.BAG IV SCH (10:45)
[2023-02-10 13:44] LABS: BASO % 0.9 % (0-2.0); EOS % 3.2 % (0-4.5); HEMATOCRIT 29.8 % (32.4-45.2); HEMOGLOBIN 9.9 GM/dL (10.7-15.3); MCH 27.7 pg (25.7-33.7); MCHC 33.2 g/dl (32.0-36.0); MEAN CELL VOLUME 83.7 fl (80-96); MEAN PLT VOLUME 6.3 fl (7.5-11.1); MONO % 8.4 % (3.8-10.2); NEUT % 73.5 % (42.8-82.8); PLATELET COUNT 967 10^3/uL (134-434); RBC 3.56 M/mm3 (3.60-5.2); RDW 20.8 % (11.6-15.6); WHITE BLOOD COUNT 10.5 K/mm3 (4.0-10.0)
[2023-02-10 14:04] LABS: POTASSIUM 4.2 mmol/L (3.5-5.1)
[2023-02-10 14:06] LABS: CALCIUM 8.4 mg/dL (8.5-10.1)
[2023-02-10 14:07] LABS: BLOOD UREA NITROGEN 9.2 mg/dL (7-18)
[2023-02-10 14:10] LABS: CREATININE 0.6 mg/dL (0.55-1.3)
[2023-02-10 14:11] LABS: BILIRUBIN,TOTAL 0.2 mg/dL (0.2-1); TOT PROT 6.2 g/dl (6.4-8.2)
[2023-02-10] MEDS: AMPICILLIN NA/SULBACTAM NA 3 GM in SODIUM CHLORIDE 100 ML IVPB SCH ×2 (15:50→21:08)
[2023-02-10] MEDS ORDERED: METOPROLOL TARTRATE 25 MG TABLET (FP) PO ONE (16:16)
[2023-02-10] MEDS: SIMETHICONE 80 MG TAB.CHEW (FP) PO PRN (22:30)
[2023-02-11] MEDS: AMPICILLIN NA/SULBACTAM NA 3 GM in SODIUM CHLORIDE 100 ML IVPB SCH ×4 (02:46→21:00)
[2023-02-11] MEDS: metroNIDAZOLE 250 MG TABLET PO SCH ×4 (05:05→21:01)
[2023-02-11] MEDS: METOPROLOL TARTRATE 25 MG TABLET (FP) PO SCH ×4 (05:05→21:01)
[2023-02-11] MEDS: HEPARIN NA (PORCINE) 5,000 UNITS/ML 1ML VIAL SQ SCH ×3 (05:06→21:01)
[2023-02-11] MEDS: PANTOPRAZOLE 40 MG TABLET PO SCH (09:30)
[2023-02-11] MEDS: SODIUM HYPOCHLORITE 0.25%- 473 ML BULK BOTTLE TP SCH (09:31)
[2023-02-11] MEDS: LYTES/YERBA SANTA 60 ML SPRAY MM SCH ×2 (09:32→21:06)
[2023-02-11] MEDS ORDERED: DIPHENOXYLATE 2.5/ATROPINE.025 1 COMBO TABLET PO PRN (11:04)
[2023-02-11] MEDS: ZINC OXIDE 20% TOPICAL OINTMENT 30 GM TUBE TP SCH ×3 (11:23→21:05)
[2023-02-11 11:49] LABS: HEMATOCRIT 31.7 % (32.4-45.2); HEMOGLOBIN 10.2 GM/dL (10.7-15.3); MCH 26.9 pg (25.7-33.7); MCHC 32.1 g/dl (32.0-36.0); MEAN PLT VOLUME 6.2 fl (7.5-11.1); PLATELET COUNT 976 10^3/uL (134-434); RBC 3.77 M/mm3 (3.60-5.2); WHITE BLOOD COUNT 10.6 K/mm3 (4.0-10.0)
[2023-02-11 12:23] LABS: POTASSIUM 4.4 mmol/L (3.5-5.1)
[2023-02-11 12:25] LABS: ALBUMIN 1.9 g/dl (3.4-5.0); BLOOD UREA NITROGEN 8.3 mg/dL (7-18); CALCIUM 8.8 mg/dL (8.5-10.1); MAGNESIUM 2.1 mg/dL (1.8-2.4)
[2023-02-11 12:28] LABS: CREATININE 0.6 mg/dL (0.55-1.3); PHOSPHOROUS 2.3 mg/dL (2.5-4.9)
[2023-02-11 12:29] LABS: BILIRUBIN,TOTAL 0.2 mg/dL (0.2-1); TOT PROT 6.1 g/dl (6.4-8.2)
[2023-02-11] MEDS ORDERED: NAPH,MB-DB/K PH,MBDB POWDER PACKET PO ONE (14:38)
[2023-02-11] MEDS ORDERED: SODIUM CHLORIDE 1,000 ML IV STA (15:58)
[2023-02-11] MEDS ORDERED: SODIUM CHLORIDE 500 ML IV STA (15:59)
[2023-02-11] MEDS ORDERED: METOPROLOL TARTRATE 5 MG/5 ML VIAL IVPUSH ONE (18:36)
[2023-02-11] MEDS: SIMETHICONE 80 MG TAB.CHEW (FP) PO PRN (21:02)
[2023-02-11] MEDS ORDERED: METOPROLOL TARTRATE 25 MG TABLET (FP) PO SCH (22:00)
[2023-02-12] MEDS: AMPICILLIN NA/SULBACTAM NA 3 GM in SODIUM CHLORIDE 100 ML IVPB SCH ×4 (03:16→21:37)
[2023-02-12] MEDS: metroNIDAZOLE 250 MG TABLET PO SCH ×3 (05:52→21:37)
[2023-02-12] MEDS: METOPROLOL TARTRATE 25 MG TABLET (FP) PO SCH ×3 (05:52→21:37)
[2023-02-12] MEDS: HEPARIN NA (PORCINE) 5,000 UNITS/ML 1ML VIAL SQ SCH (05:52)
[2023-02-12] MEDS: ZINC OXIDE 20% TOPICAL OINTMENT 30 GM TUBE TP SCH ×3 (05:53→21:37)
[2023-02-12 07:54] LABS: BASO % 1.5 % (0-2.0); EOS % 2.9 % (0-4.5); HEMATOCRIT 31.9 % (32.4-45.2); HEMOGLOBIN 10.3 GM/dL (10.7-15.3); LYMPH % 18.4 % (8-40); MCHC 32.4 g/dl (32.0-36.0); MEAN CELL VOLUME 86.3 fl (80-96); MEAN PLT VOLUME 6.6 fl (7.5-11.1); MONO % 8.6 % (3.8-10.2); NEUT % 68.6 % (42.8-82.8); PLATELET COUNT 979 10^3/uL (134-434); RBC 3.69 M/mm3 (3.60-5.2); RDW 21.3 % (11.6-15.6); WHITE BLOOD COUNT 6.9 K/mm3 (4.0-10.0)
[2023-02-12 08:40] LABS: POTASSIUM 4.2 mmol/L (3.5-5.1)
[2023-02-12 08:43] LABS: ALBUMIN 1.9 g/dl (3.4-5.0); BLOOD UREA NITROGEN 9.4 mg/dL (7-18); CALCIUM 8.5 mg/dL (8.5-10.1)
[2023-02-12 08:45] LABS: MAGNESIUM 1.9 mg/dL (1.8-2.4)
[2023-02-12 08:46] LABS: CREATININE 0.6 mg/dL (0.55-1.3); PHOSPHOROUS 3.1 mg/dL (2.5-4.9)
[2023-02-12 08:48] LABS: BILIRUBIN,TOTAL 0.4 mg/dL (0.2-1); TOT PROT 6.1 g/dl (6.4-8.2)
[2023-02-12] MEDS: LYTES/YERBA SANTA 60 ML SPRAY MM SCH ×2 (09:55→21:37)
[2023-02-12] MEDS: SODIUM HYPOCHLORITE 0.25%- 473 ML BULK BOTTLE TP SCH (09:55)
[2023-02-12] MEDS: PANTOPRAZOLE 40 MG TABLET PO SCH (09:55)
[2023-02-12 12:30] LABS: INR 1.27 (0.83-1.09); PROTHROMBIN TIME (PATIENT) 14.7 SEC (9.7-13.0)
[2023-02-12] MEDS ORDERED: MIDAZOLAM HCL 2 MG/2 ML SINGLE DOSE VIAL ONE (14:18)
[2023-02-12] MEDS ORDERED: FENTANYL CITRATE/PF 50 MCG/ML VIAL ONE (14:19)
[2023-02-13] MEDS: AMPICILLIN NA/SULBACTAM NA 3 GM in SODIUM CHLORIDE 100 ML IVPB SCH ×4 (03:58→21:45)
[2023-02-13] MEDS: ZINC OXIDE 20% TOPICAL OINTMENT 30 GM TUBE TP SCH ×3 (05:28→21:47)
[2023-02-13] MEDS: metroNIDAZOLE 250 MG TABLET PO SCH ×3 (05:57→21:46)
[2023-02-13] MEDS: METOPROLOL TARTRATE 25 MG TABLET (FP) PO SCH ×3 (05:58→21:46)
[2023-02-13 07:05] LABS: BASO % 1.4 % (0-2.0); EOS % 2.7 % (0-4.5); HEMATOCRIT 29.4 % (32.4-45.2); HEMOGLOBIN 9.5 GM/dL (10.7-15.3); LYMPH % 16.8 % (8-40); MCH 27.7 pg (25.7-33.7); MCHC 32.3 g/dl (32.0-36.0); MEAN CELL VOLUME 85.8 fl (80-96); MEAN PLT VOLUME 6.3 fl (7.5-11.1); MONO % 8.5 % (3.8-10.2); NEUT % 70.6 % (42.8-82.8); PLATELET COUNT 803 10^3/uL (134-434); RBC 3.43 M/mm3 (3.60-5.2); WHITE BLOOD COUNT 7.1 K/mm3 (4.0-10.0)
[2023-02-13 07:25] LABS: POTASSIUM 3.9 mmol/L (3.5-5.1)
[2023-02-13 07:34] LABS: CALCIUM 8.5 mg/dL (8.5-10.1)
[2023-02-13 07:35] LABS: ALBUMIN 1.8 g/dl (3.4-5.0); BLOOD UREA NITROGEN 9.3 mg/dL (7-18)
[2023-02-13 07:38] LABS: CREATININE 0.6 mg/dL (0.55-1.3)
[2023-02-13 07:40] LABS: TOT PROT 5.8 g/dl (6.4-8.2)
[2023-02-13 07:41] LABS: BILIRUBIN,TOTAL 0.4 mg/dL (0.2-1)
[2023-02-13 09:17] LABS: ANISOCYTOSIS 2+; MACROCYTOSIS 0
[2023-02-13] MEDS: PANTOPRAZOLE 40 MG TABLET PO SCH (10:12)
[2023-02-13] MEDS: SODIUM HYPOCHLORITE 0.25%- 473 ML BULK BOTTLE TP SCH (10:14)
[2023-02-13] MEDS: LYTES/YERBA SANTA 60 ML SPRAY MM SCH ×2 (10:14→21:47)
[2023-02-13] MEDS ORDERED: SODIUM CHLORIDE 250 ML IV STA ×2 (12:18→12:19)
[2023-02-13] MEDS: HEPARIN NA (PORCINE) 5,000 UNITS/ML 1ML VIAL SQ SCH ×2 (13:02→21:46)
[2023-02-13] MEDS: SIMETHICONE 80 MG TAB.CHEW (FP) PO PRN (15:02)
[2023-02-13] MEDS: ACETAMINOPHEN 325 MG TABLET (FP) PO PRN (19:15)
[2023-02-13] MEDS: LATANOPROST 0.005% OPHTH SOLN 2.5ML BOTTLE OU SCH (21:47)
[2023-02-13] MEDS ORDERED: LATANOPROST 0.005% OPHTH SOLN 2.5ML BOTTLE OU SCH (22:00)
[2023-02-14] MEDS: AMPICILLIN NA/SULBACTAM NA 3 GM in SODIUM CHLORIDE 100 ML IVPB SCH ×4 (02:42→22:18)
[2023-02-14] MEDS: SIMETHICONE 80 MG TAB.CHEW (FP) PO PRN ×2 (05:53→22:19)
[2023-02-14] MEDS: HEPARIN NA (PORCINE) 5,000 UNITS/ML 1ML VIAL SQ SCH ×3 (06:02→22:18)
[2023-02-14] MEDS: ZINC OXIDE 20% TOPICAL OINTMENT 30 GM TUBE TP SCH ×3 (06:16→22:19)
[2023-02-14 08:23] LABS: BASO % 1.3 % (0-2.0); LYMPH % 18.6 % (8-40); MCH 27.8 pg (25.7-33.7); MCHC 32.4 g/dl (32.0-36.0); MEAN CELL VOLUME 85.9 fl (80-96); MEAN PLT VOLUME 6.7 fl (7.5-11.1); MONO % 7.9 % (3.8-10.2); NEUT % 70.2 % (42.8-82.8); PLATELET COUNT 766 10^3/uL (134-434); RBC 3.61 M/mm3 (3.60-5.2); WHITE BLOOD COUNT 6.5 K/mm3 (4.0-10.0)
[2023-02-14] MEDS: metroNIDAZOLE 250 MG TABLET PO SCH ×3 (08:23→22:18)
[2023-02-14] MEDS: METOPROLOL TARTRATE 25 MG TABLET (FP) PO SCH ×3 (08:23→22:19)
[2023-02-14 09:17] LABS: POTASSIUM 3.3 mmol/L (3.5-5.1)
[2023-02-14 09:27] LABS: BILIRUBIN,TOTAL 0.3 mg/dL (0.2-1); BLOOD UREA NITROGEN 8.3 mg/dL (7-18); CALCIUM 8.4 mg/dL (8.5-10.1)
[2023-02-14 09:28] LABS: PHOSPHOROUS 3.1 mg/dL (2.5-4.9)
[2023-02-14 09:29] LABS: CREATININE 0.6 mg/dL (0.55-1.3)
[2023-02-14] MEDS: LYTES/YERBA SANTA 60 ML SPRAY MM SCH ×2 (09:36→22:19)
[2023-02-14] MEDS: SODIUM HYPOCHLORITE 0.25%- 473 ML BULK BOTTLE TP SCH (09:36)
[2023-02-14] MEDS: PANTOPRAZOLE 40 MG TABLET PO SCH (09:37)
[2023-02-14] MEDS ORDERED: POTASSIUM CHLORIDE ORAL LIQUID 20 MEQ/15 ML PO ONE (13:37)
[2023-02-14] MEDS: SODIUM CHLORIDE 1,000 ML IV SCH (15:51)
[2023-02-15] MEDS: AMPICILLIN NA/SULBACTAM NA 3 GM in SODIUM CHLORIDE 100 ML IVPB SCH ×4 (02:51→21:34)
[2023-02-15] MEDS: metroNIDAZOLE 250 MG TABLET PO SCH ×4 (06:49→23:20)
[2023-02-15] MEDS: HEPARIN NA (PORCINE) 5,000 UNITS/ML 1ML VIAL SQ SCH ×4 (06:49→23:21)
[2023-02-15] MEDS: METOPROLOL TARTRATE 25 MG TABLET (FP) PO SCH ×4 (06:49→23:22)
[2023-02-15] MEDS: ZINC OXIDE 20% TOPICAL OINTMENT 30 GM TUBE TP SCH ×3 (06:49→23:23)
[2023-02-15 06:52] LABS: POTASSIUM 3.5 mmol/L (3.5-5.1)
[2023-02-15 06:56] LABS: BASO % 1.1 % (0-2.0); EOS % 2.3 % (0-4.5); HEMATOCRIT 29.6 % (32.4-45.2); HEMOGLOBIN 9.9 GM/dL (10.7-15.3); LYMPH % 25.8 % (8-40); MCH 28.4 pg (25.7-33.7); MCHC 33.4 g/dl (32.0-36.0); MEAN CELL VOLUME 85.1 fl (80-96); MEAN PLT VOLUME 6.3 fl (7.5-11.1); MONO % 8.8 % (3.8-10.2); PLATELET COUNT 655 10^3/uL (134-434); RBC 3.48 M/mm3 (3.60-5.2)
[2023-02-15 06:59] LABS: CALCIUM 7.9 mg/dL (8.5-10.1)
[2023-02-15 07:00] LABS: ALBUMIN 1.9 g/dl (3.4-5.0); BLOOD UREA NITROGEN 6.7 mg/dL (7-18); MAGNESIUM 1.9 mg/dL (1.8-2.4)
[2023-02-15 07:02] LABS: PHOSPHOROUS 2.9 mg/dL (2.5-4.9)
[2023-02-15 07:03] LABS: CREATININE 0.5 mg/dL (0.55-1.3)
[2023-02-15 07:04] LABS: BILIRUBIN,TOTAL 0.4 mg/dL (0.2-1); TOT PROT 5.5 g/dl (6.4-8.2)
[2023-02-15] MEDS: PANTOPRAZOLE 40 MG TABLET PO SCH (09:16)
[2023-02-15] MEDS: LYTES/YERBA SANTA 60 ML SPRAY MM SCH ×2 (09:16→23:22)
[2023-02-15] MEDS: SODIUM HYPOCHLORITE 0.25%- 473 ML BULK BOTTLE TP SCH (09:16)
[2023-02-15] MEDS: SODIUM CHLORIDE 1,000 ML IV SCH (14:10)
[2023-02-15] MEDS ORDERED: DIPHENOXYLATE 2.5/ATROPINE.025 1 COMBO TABLET PO PRN (22:11)
[2023-02-15] MEDS: LATANOPROST 0.005% OPHTH SOLN 2.5ML BOTTLE OU SCH (22:53)
[2023-02-15] MEDS: SIMETHICONE 80 MG TAB.CHEW (FP) PO PRN (23:04)
[2023-02-16] MEDS: AMPICILLIN NA/SULBACTAM NA 3 GM in SODIUM CHLORIDE 100 ML IVPB SCH ×4 (04:43→21:58)
[2023-02-16] MEDS ORDERED: metroNIDAZOLE 250 MG TABLET PO SCH (06:00)
[2023-02-16] MEDS ORDERED: HEPARIN NA (PORCINE) 5,000 UNITS/ML 1ML VIAL SQ SCH (06:00)
[2023-02-16] MEDS ORDERED: METOPROLOL TARTRATE 25 MG TABLET (FP) PO SCH (06:00)
[2023-02-16] MEDS: METOPROLOL TARTRATE 25 MG TABLET (FP) PO SCH ×3 (07:08→22:02)
[2023-02-16] MEDS: HEPARIN NA (PORCINE) 5,000 UNITS/ML 1ML VIAL SQ SCH ×3 (07:08→22:04)
[2023-02-16] MEDS: ZINC OXIDE 20% TOPICAL OINTMENT 30 GM TUBE TP SCH ×3 (07:10→22:08)
[2023-02-16 08:31] LABS: BASO % 0.9 % (0-2.0); EOS % 2.7 % (0-4.5); HEMATOCRIT 30.6 % (32.4-45.2); HEMOGLOBIN 10.1 GM/dL (10.7-15.3); LYMPH % 21.1 % (8-40); MCH 28.6 pg (25.7-33.7); MEAN CELL VOLUME 86.9 fl (80-96); MEAN PLT VOLUME 6.7 fl (7.5-11.1); MONO % 8.8 % (3.8-10.2); NEUT % 66.5 % (42.8-82.8); PLATELET COUNT 614 10^3/uL (134-434); RBC 3.53 M/mm3 (3.60-5.2); RDW 21.3 % (11.6-15.6); WHITE BLOOD COUNT 5.5 K/mm3 (4.0-10.0)
[2023-02-16 08:42] LABS: POTASSIUM 3.6 mmol/L (3.5-5.1)
[2023-02-16 08:46] LABS: BLOOD UREA NITROGEN 5.9 mg/dL (7-18); MAGNESIUM 1.9 mg/dL (1.8-2.4)
[2023-02-16 08:48] LABS: PHOSPHOROUS 2.8 mg/dL (2.5-4.9)
[2023-02-16 08:49] LABS: CREATININE 0.6 mg/dL (0.55-1.3)
[2023-02-16 08:50] LABS: BILIRUBIN,TOTAL 0.2 mg/dL (0.2-1)
[2023-02-16 09:19] LABS: ANISOCYTOSIS 2+; MACROCYTOSIS 0
[2023-02-16] MEDS: metroNIDAZOLE 250 MG TABLET PO SCH ×3 (10:24→22:02)
[2023-02-16] MEDS: PANTOPRAZOLE 40 MG TABLET PO SCH (10:29)
[2023-02-16] MEDS: LYTES/YERBA SANTA 60 ML SPRAY MM SCH ×2 (10:32→22:08)
[2023-02-16] MEDS: SODIUM HYPOCHLORITE 0.25%- 473 ML BULK BOTTLE TP SCH (10:34)
[2023-02-16] MEDS: ACETAMINOPHEN 325 MG TABLET (FP) PO PRN (18:24)
[2023-02-17] MEDS: AMPICILLIN NA/SULBACTAM NA 3 GM in SODIUM CHLORIDE 100 ML IVPB SCH ×4 (02:42→21:42)
[2023-02-17] MEDS: METOPROLOL TARTRATE 25 MG TABLET (FP) PO SCH ×3 (07:20→21:43)
[2023-02-17] MEDS: metroNIDAZOLE 250 MG TABLET PO SCH ×4 (07:20→21:42)
[2023-02-17] MEDS: HEPARIN NA (PORCINE) 5,000 UNITS/ML 1ML VIAL SQ SCH ×3 (07:21→21:43)
[2023-02-17] MEDS: ZINC OXIDE 20% TOPICAL OINTMENT 30 GM TUBE TP SCH ×3 (07:22→21:47)
[2023-02-17 09:21] LABS: BASO % 0.9 % (0-2.0); EOS % 2.3 % (0-4.5); HEMATOCRIT 33.7 % (32.4-45.2); HEMOGLOBIN 10.8 GM/dL (10.7-15.3); MCH 27.5 pg (25.7-33.7); MEAN CELL VOLUME 85.8 fl (80-96); MONO % 8.6 % (3.8-10.2); NEUT % 68.2 % (42.8-82.8); PLATELET COUNT 578 10^3/uL (134-434); RBC 3.92 M/mm3 (3.60-5.2); RDW 21.4 % (11.6-15.6)
[2023-02-17 09:40] LABS: POTASSIUM 3.3 mmol/L (3.5-5.1)
[2023-02-17 09:49] LABS: CALCIUM 8.2 mg/dL (8.5-10.1)
[2023-02-17 09:50] LABS: ALBUMIN 2.2 g/dl (3.4-5.0); BLOOD UREA NITROGEN 6.4 mg/dL (7-18); MAGNESIUM 2.1 mg/dL (1.8-2.4)
[2023-02-17 09:53] LABS: CREATININE 0.6 mg/dL (0.55-1.3); PHOSPHOROUS 2.9 mg/dL (2.5-4.9)
[2023-02-17] MEDS: PANTOPRAZOLE 40 MG TABLET PO SCH (09:54)
[2023-02-17 09:55] LABS: BILIRUBIN,TOTAL 0.3 mg/dL (0.2-1); TOT PROT 6.4 g/dl (6.4-8.2)
[2023-02-17] MEDS: LYTES/YERBA SANTA 60 ML SPRAY MM SCH ×2 (17:08→21:46)
[2023-02-17] MEDS: SODIUM HYPOCHLORITE 0.25%- 473 ML BULK BOTTLE TP SCH (17:08)
[2023-02-17] MEDS: ACETAMINOPHEN 325 MG TABLET (FP) PO PRN (17:18)
[2023-02-17] MEDS ORDERED: DIPHENOXYLATE 2.5/ATROPINE.025 1 COMBO TABLET PO PRN (19:37)
[2023-02-17] MEDS: LATANOPROST 0.005% OPHTH SOLN 2.5ML BOTTLE OU SCH (21:46)
[2023-02-18] MEDS: ACETAMINOPHEN 325 MG TABLET (FP) PO PRN ×2 (01:35→14:48)
[2023-02-18] MEDS: AMPICILLIN NA/SULBACTAM NA 3 GM in SODIUM CHLORIDE 100 ML IVPB SCH ×4 (03:25→20:47)
[2023-02-18] MEDS: metroNIDAZOLE 250 MG TABLET PO SCH ×3 (08:00→22:22)
[2023-02-18] MEDS: METOPROLOL TARTRATE 25 MG TABLET (FP) PO SCH ×3 (08:01→22:22)
[2023-02-18] MEDS: HEPARIN NA (PORCINE) 5,000 UNITS/ML 1ML VIAL SQ SCH ×3 (08:02→22:23)
[2023-02-18] MEDS: ZINC OXIDE 20% TOPICAL OINTMENT 30 GM TUBE TP SCH ×3 (08:02→22:27)
[2023-02-18] MEDS: PANTOPRAZOLE 40 MG TABLET PO SCH (09:22)
[2023-02-18 09:58] LABS: BASO % 1.1 % (0-2.0); EOS % 2.6 % (0-4.5); HEMATOCRIT 34.4 % (32.4-45.2); HEMOGLOBIN 10.9 GM/dL (10.7-15.3); LYMPH % 22.2 % (8-40); MCH 27.5 pg (25.7-33.7); MCHC 31.8 g/dl (32.0-36.0); MEAN CELL VOLUME 86.3 fl (80-96); MEAN PLT VOLUME 7.1 fl (7.5-11.1); MONO % 8.5 % (3.8-10.2); NEUT % 65.6 % (42.8-82.8); PLATELET COUNT 523 10^3/uL (134-434); RBC 3.98 M/mm3 (3.60-5.2); RDW 21.8 % (11.6-15.6); WHITE BLOOD COUNT 5.6 K/mm3 (4.0-10.0)
[2023-02-18 10:18] LABS: POTASSIUM 3.2 mmol/L (3.5-5.1)
[2023-02-18 10:23] LABS: BLOOD UREA NITROGEN 7.6 mg/dL (7-18); CALCIUM 8.3 mg/dL (8.5-10.1)
[2023-02-18 10:24] LABS: MAGNESIUM 2.1 mg/dL (1.8-2.4)
[2023-02-18 10:26] LABS: CREATININE 0.8 mg/dL (0.55-1.3)
[2023-02-18 10:28] LABS: BILIRUBIN,TOTAL 0.3 mg/dL (0.2-1); TOT PROT 6.1 g/dl (6.4-8.2)
[2023-02-18] MEDS: SODIUM HYPOCHLORITE 0.25%- 473 ML BULK BOTTLE TP SCH (10:57)
[2023-02-18] MEDS: LYTES/YERBA SANTA 60 ML SPRAY MM SCH ×2 (11:00→22:29)
[2023-02-18] MEDS: SIMETHICONE 80 MG TAB.CHEW (FP) PO PRN (22:22)
[2023-02-19] MEDS: AMPICILLIN NA/SULBACTAM NA 3 GM in SODIUM CHLORIDE 100 ML IVPB SCH ×4 (02:33→22:30)
[2023-02-19] MEDS: ACETAMINOPHEN 325 MG TABLET (FP) PO PRN (03:08)
[2023-02-19] MEDS: METOPROLOL TARTRATE 25 MG TABLET (FP) PO SCH ×3 (05:51→22:31)
[2023-02-19] MEDS: metroNIDAZOLE 250 MG TABLET PO SCH ×4 (05:51→23:17)
[2023-02-19] MEDS: HEPARIN NA (PORCINE) 5,000 UNITS/ML 1ML VIAL SQ SCH ×2 (05:51→15:33)
[2023-02-19] MEDS: ZINC OXIDE 20% TOPICAL OINTMENT 30 GM TUBE TP SCH ×3 (05:54→22:35)
[2023-02-19] MEDS: SODIUM HYPOCHLORITE 0.25%- 473 ML BULK BOTTLE TP SCH (10:12)
[2023-02-19] MEDS: LYTES/YERBA SANTA 60 ML SPRAY MM SCH ×2 (10:14→22:35)
[2023-02-19] MEDS: PANTOPRAZOLE 40 MG TABLET PO SCH (11:05)
[2023-02-19] MEDS ORDERED: HEPARIN NA (PORCINE) 5,000 UNITS/ML 1ML VIAL IVPUSH PRN ×2 (16:03)
[2023-02-19] MEDS ORDERED: HEPARIN INFUSION - 25,000 UNITS/500 ML INFUS.BAG IVPB SCH (16:15)
[2023-02-19] MEDS: LATANOPROST 0.005% OPHTH SOLN 2.5ML BOTTLE OU SCH (22:34)
[2023-02-20] MEDS: AMPICILLIN NA/SULBACTAM NA 3 GM in SODIUM CHLORIDE 100 ML IVPB SCH ×4 (02:27→21:52)
[2023-02-20] MEDS: METOPROLOL TARTRATE 25 MG TABLET (FP) PO SCH ×3 (05:41→22:41)
[2023-02-20] MEDS: ZINC OXIDE 20% TOPICAL OINTMENT 30 GM TUBE TP SCH ×3 (05:43→22:42)
[2023-02-20] MEDS: metroNIDAZOLE 250 MG TABLET PO SCH ×3 (05:47→22:41)
[2023-02-20] MEDS: SODIUM HYPOCHLORITE 0.25%- 473 ML BULK BOTTLE TP SCH (09:44)
[2023-02-20] MEDS: LYTES/YERBA SANTA 60 ML SPRAY MM SCH ×2 (09:45→22:42)
[2023-02-20] MEDS: PANTOPRAZOLE 40 MG TABLET PO SCH (10:25)
[2023-02-20 10:33] LABS: BASO % 0.5 % (0-2.0); EOS % 1.9 % (0-4.5); HEMATOCRIT 35.1 % (32.4-45.2); HEMOGLOBIN 11.5 GM/dL (10.7-15.3); LYMPH % 26.8 % (8-40); MCH 28.3 pg (25.7-33.7); MCHC 32.7 g/dl (32.0-36.0); MEAN CELL VOLUME 86.7 fl (80-96); MEAN PLT VOLUME 7.2 fl (7.5-11.1); MONO % 8.8 % (3.8-10.2); PLATELET COUNT 490 10^3/uL (134-434); RBC 4.04 M/mm3 (3.60-5.2); RDW 22.1 % (11.6-15.6); WHITE BLOOD COUNT 5.4 K/mm3 (4.0-10.0)
[2023-02-20 10:57] LABS: ANISOCYTOSIS 1+; MACROCYTOSIS 1+
[2023-02-20 11:05] LABS: POTASSIUM 3.6 mmol/L (3.5-5.1)
[2023-02-20 11:07] LABS: ALBUMIN 2.2 g/dl (3.4-5.0); CALCIUM 8.9 mg/dL (8.5-10.1)
[2023-02-20 11:08] LABS: BLOOD UREA NITROGEN 9.1 mg/dL (7-18); MAGNESIUM 2.1 mg/dL (1.8-2.4)
[2023-02-20 11:10] LABS: CREATININE 0.7 mg/dL (0.55-1.3)
[2023-02-20 11:12] LABS: BILIRUBIN,TOTAL 0.3 mg/dL (0.2-1); TOT PROT 6.4 g/dl (6.4-8.2)
[2023-02-20] MEDS ORDERED: FENTANYL CITRATE/PF 50 MCG/ML VIAL ONE (12:09)
[2023-02-20] MEDS ORDERED: FENTANYL CITRATE/PF 50 MCG/ML VIAL IVPUSH ONE (12:12)
[2023-02-20] MEDS: ACETAMINOPHEN 325 MG TABLET (FP) PO PRN ×2 (12:53→22:51)
[2023-02-20] MEDS: APIXABAN 5 MG TABLET PO SCH ×2 (15:45→22:41)
[2023-02-21] MEDS: AMPICILLIN NA/SULBACTAM NA 3 GM in SODIUM CHLORIDE 100 ML IVPB SCH ×4 (03:01→21:54)
[2023-02-21] MEDS: ZINC OXIDE 20% TOPICAL OINTMENT 30 GM TUBE TP SCH ×3 (06:16→21:56)
[2023-02-21] MEDS: metroNIDAZOLE 250 MG TABLET PO SCH ×3 (06:16→21:54)
[2023-02-21 09:01] LABS: BASO % 0.6 % (0-2.0); HEMOGLOBIN 11.7 GM/dL (10.7-15.3); LYMPH % 18.2 % (8-40); MCH 27.7 pg (25.7-33.7); MCHC 32.4 g/dl (32.0-36.0); MEAN CELL VOLUME 85.7 fl (80-96); MEAN PLT VOLUME 7.3 fl (7.5-11.1); MONO % 8.1 % (3.8-10.2); NEUT % 72.1 % (42.8-82.8); PLATELET COUNT 505 10^3/uL (134-434); RBC 4.21 M/mm3 (3.60-5.2); RDW 21.7 % (11.6-15.6); WHITE BLOOD COUNT 8.1 K/mm3 (4.0-10.0)
[2023-02-21 09:13] LABS: POTASSIUM 3.3 mmol/L (3.5-5.1)
[2023-02-21 09:20] LABS: ALBUMIN 2.4 g/dl (3.4-5.0)
[2023-02-21 09:21] LABS: BLOOD UREA NITROGEN 11.2 mg/dL (7-18); CALCIUM 8.9 mg/dL (8.5-10.1)
[2023-02-21 09:23] LABS: BILIRUBIN,TOTAL 0.5 mg/dL (0.2-1); CREATININE 0.7 mg/dL (0.55-1.3)
[2023-02-21 09:24] LABS: TOT PROT 6.7 g/dl (6.4-8.2)
[2023-02-21] MEDS: PANTOPRAZOLE 40 MG TABLET PO SCH (10:31)
[2023-02-21] MEDS: METOPROLOL TARTRATE 25 MG TABLET (FP) PO SCH ×2 (10:31→21:54)
[2023-02-21] MEDS: APIXABAN 5 MG TABLET PO SCH ×2 (10:31→21:54)
[2023-02-21] MEDS: SODIUM HYPOCHLORITE 0.25%- 473 ML BULK BOTTLE TP SCH (11:06)
[2023-02-21] MEDS: LYTES/YERBA SANTA 60 ML SPRAY MM SCH ×2 (11:11→21:56)
[2023-02-21] MEDS: POTASSIUM CHLORIDE ORAL LIQUID 20 MEQ/15 ML PO SCH ×2 (11:46→21:54)
[2023-02-21] MEDS: ACETAMINOPHEN 325 MG TABLET (FP) PO PRN (14:32)
[2023-02-21 19:38] VITALS: RESP 18
[2023-02-21] MEDS: LATANOPROST 0.005% OPHTH SOLN 2.5ML BOTTLE OU SCH (22:04)
[2023-02-22] MEDS: AMPICILLIN NA/SULBACTAM NA 3 GM in SODIUM CHLORIDE 100 ML IVPB SCH ×3 (03:07→16:11)
[2023-02-22] MEDS: metroNIDAZOLE 250 MG TABLET PO SCH ×3 (06:10→16:11)
[2023-02-22] MEDS: ZINC OXIDE 20% TOPICAL OINTMENT 30 GM TUBE TP SCH (06:10)
[2023-02-22] MEDS: PANTOPRAZOLE 40 MG TABLET PO SCH (09:56)
[2023-02-22] MEDS: POTASSIUM CHLORIDE ORAL LIQUID 20 MEQ/15 ML PO SCH (09:56)
[2023-02-22] MEDS: METOPROLOL TARTRATE 25 MG TABLET (FP) PO SCH (09:56)
[2023-02-22] MEDS: LYTES/YERBA SANTA 60 ML SPRAY MM SCH (09:58)
[2023-02-22] MEDS: APIXABAN 5 MG TABLET PO SCH (10:00)
[2023-02-22] MEDS: SODIUM HYPOCHLORITE 0.25%- 473 ML BULK BOTTLE TP SCH (10:27)
[2023-02-22 10:30] LABS: BASO % 0.4 % (0-2.0); EOS % 1.7 % (0-4.5); HEMATOCRIT 36.8 % (32.4-45.2); HEMOGLOBIN 12.1 GM/dL (10.7-15.3); LYMPH % 30.3 % (8-40); MCH 27.9 pg (25.7-33.7); MCHC 32.9 g/dl (32.0-36.0); MEAN CELL VOLUME 84.9 fl (80-96); MEAN PLT VOLUME 6.9 fl (7.5-11.1); MONO % 8.4 % (3.8-10.2); NEUT % 59.2 % (42.8-82.8); PLATELET COUNT 511 10^3/uL (134-434); RBC 4.33 M/mm3 (3.60-5.2); RDW 22.1 % (11.6-15.6); WHITE BLOOD COUNT 6.8 K/mm3 (4.0-10.0)
[2023-02-22 10:53] LABS: POTASSIUM 3.9 mmol/L (3.5-5.1)
[2023-02-22 11:02] LABS: ALBUMIN 2.3 g/dl (3.4-5.0)
[2023-02-22 11:03] LABS: BLOOD UREA NITROGEN 11.1 mg/dL (7-18); MAGNESIUM 2.1 mg/dL (1.8-2.4)
[2023-02-22 11:05] LABS: CREATININE 0.6 mg/dL (0.55-1.3)
[2023-02-22 11:07] LABS: BILIRUBIN,TOTAL 0.4 mg/dL (0.2-1); TOT PROT 6.9 g/dl (6.4-8.2)
[2023-02-22 15:34] VITALS: BP 110/66; PULSE 102; TEMP 98
[2023-02-22] MEDS ORDERED: CEFTRIAXONE 2 GM in DEXTROSE 5%-WATER 100 ML IVPB ONE (15:45)
[2023-02-22] MEDS ORDERED: AMOX TR/POT CLAV 875MG/125MG TABLETS (FP) PO ONE (16:09)
== END 2023-02-22 19:04 | disposition home or self-care (01) | DRG 853 ==
LOC: JER 18:08 → JERBED 01-28 03:50 → J4S 01-28 06:58 → JICU 01-29 19:57 → J8W 02-05 00:15 → J4S 02-10 15:06 → J8W 02-15 20:27
PROVIDERS: ADMIT Internal Medicine; ATTEND Nurse Practitioner Family
PROC: 0W9J0ZZ Drainage of Pelvic Cavity, Open Approach (ICD-10-PCS; 2023-01-28)
PROC: 0W9H3ZX Drainage of Retroperitoneum, Percutaneous Approach, Diagnostic (ICD-10-PCS; 2023-01-28)
PROC: 30233N1 Transfusion of Nonautologous Red Blood Cells into Peripheral Vein, Percutaneous Approach (ICD-10-PCS; 2023-01-30)
PROC: 05HM33Z Insertion of Infusion Device into Right Internal Jugular Vein, Percutaneous Approach (ICD-10-PCS; 2023-01-31)
PROC: B543ZZA Ultrasonography of Right Jugular Veins, Guidance (ICD-10-PCS; 2023-01-31)
PROC: 0D1N0Z4 Bypass Sigmoid Colon to Cutaneous, Open Approach (ICD-10-PCS; 2023-02-04)
PROC: 0DBN0ZZ Excision of Sigmoid Colon, Open Approach (ICD-10-PCS; 2023-02-04)
PROC: 0UB90ZZ Excision of Uterus, Open Approach (ICD-10-PCS; 2023-02-04)
PROC: 0D9W30Z Drainage of Peritoneum with Drainage Device, Percutaneous Approach (ICD-10-PCS; principal; 2023-02-12)
PROC: 0D2 Gastrointestinal System, Change (ICD-10-PCS; 2023-02-20)
PROC: 02HV33Z Insertion of Infusion Device into Superior Vena Cava, Percutaneous Approach (ICD-10-PCS; 2023-02-22)
PROC: B518ZZA Fluoroscopy of Superior Vena Cava, Guidance (ICD-10-PCS; 2023-02-22)
DX: A41.89 Other specified sepsis (principal); J95.821 Acute postprocedural respiratory failure; R65.21 Severe sepsis with septic shock; K65.1 Peritoneal abscess; K65.8 Other peritonitis; N13.2 Hydronephrosis with renal and ureteral calculous obstruction; K61.1 Rectal abscess; E87.20 Acidosis, unspecified; J98.11 Atelectasis; K57.20 Diverticulitis of large intestine with perforation and abscess without bleeding; K56.699 Other intestinal obstruction unspecified as to partial versus complete obstruction; R18.8 Other ascites; I97.89 Other postprocedural complications and disorders of the circulatory system, not elsewhere classified; N17.9 Acute kidney failure, unspecified; E46 Unspecified protein-calorie malnutrition; I82.811 Embolism and thrombosis of superficial veins of right lower extremity; I95.81 Postprocedural hypotension; I48.91 Unspecified atrial fibrillation; E87.6 Hypokalemia; R00.0 Tachycardia, unspecified; R10.30 Lower abdominal pain, unspecified; K42.9 Umbilical hernia without obstruction or gangrene; K59.00 Constipation, unspecified; H40.89 Other specified glaucoma; D25.9 Leiomyoma of uterus, unspecified; K52.9 Noninfective gastroenteritis and colitis, unspecified; D72.829 Elevated white blood cell count, unspecified; K86.89 Other specified diseases of pancreas; Z93.2 Ileostomy status; Z53.31 Laparoscopic surgical procedure converted to open procedure; Y83.8 Other surgical procedures as the cause of abnormal reaction of the patient, or of later complication, without mention of misadventure at the time of the procedure; Z68.22 Body mass index [BMI] 22.0-22.9, adult; B95.2 Enterococcus as the cause of diseases classified elsewhere; B96.20 Unspecified Escherichia coli [E. coli] as the cause of diseases classified elsewhere; B95.1 Streptococcus, group B, as the cause of diseases classified elsewhere
CPT/HCPCS: 36415; 36430; 36569; 36600; 49406; 49407; 49423; 71045-TC-FY; 71275-TC; 74177-TC; 74178-TC; 77001-TC-FY; 77012-TC; 80048; 80053; 80061; 80076; 81003; 82248; 82550; 82553; 82803; 82977; 83036; 83605; 83690; 83735; 84100; 84439; 84443; 84484; 85025; 85027; 85379; 85610; 85651; 85730; 86140; 86850; 86870; 86900; 86901; 86902; 86922; 87040; 87070; 87075; 87077; 87086; 87102; 87116; 87186; 87205; 87206; 87210; 87635; 93005; 93010; 93306-TC; 93970-TC; 94002; 94010; 94640; 94760; 97116-GP; 97162-GP; 99285-25; C1729; C1751; C1769; J1644; P9058; Q9967

== ENCOUNTER 2023-03-12 05:36 | Observation (INO) | payer BC, OTHER ==
[2023-03-12] MEDS ORDERED: oxyCODONE HCL 5 MG TABLET PO PRN (14:15)
[2023-03-12] MEDS ORDERED: ACETAMINOPHEN INJECTION 100 ML IVPB ONE (14:17)
[2023-03-12] MEDS ORDERED: CEFOXITIN SODIUM 2 GM IVPB ONE (14:33)
[2023-03-12] MEDS ORDERED: cefOXitin SODIUM 1 GM VIAL (RESTRICTED TO ID) IVPB ONE (14:35)
[2023-03-12] MEDS ORDERED: ACETAMINOPHEN 500 MG TABLET (FP) PO SCH (16:30)
[2023-03-12] MEDS: LACTATED RINGERS SOLUTION 1,000 ML IV SCH (20:50)
[2023-03-12] MEDS ORDERED: PATIENT'S OWN MEDICATION (NON-FORMULARY) (Amoxicillin [Amoxicillin] 875 MG Tablet) PO SCH (22:00)
[2023-03-12] MEDS: APIXABAN 5 MG TABLET PO SCH (22:55)
[2023-03-12] MEDS: METOPROLOL TARTRATE 25 MG TABLET (FP) PO SCH (22:56)
[2023-03-13] MEDS: CEFTRIAXONE 2 GM in DEXTROSE 5%-WATER 100 ML IVPB SCH (09:34)
[2023-03-13] MEDS: PANTOPRAZOLE 40 MG TABLET PO SCH (09:34)
[2023-03-13] MEDS: APIXABAN 5 MG TABLET PO SCH ×2 (09:34→22:02)
[2023-03-13] MEDS: LACTATED RINGERS SOLUTION 1,000 ML IV SCH ×3 (09:40→16:15)
[2023-03-13] MEDS ORDERED: CEFTRIAXONE IN IS OSM DEXTROSE IV SCH (10:00)
[2023-03-13] MEDS ORDERED: [UNRECOGNIZED DRUG - OTHER] IV SCH (10:00)
[2023-03-13] MEDS: METOPROLOL TARTRATE 25 MG TABLET (FP) PO SCH ×2 (10:13→22:03)
[2023-03-13 15:08] VITALS: BMI 26.4
[2023-03-13] MEDS ORDERED: LATANOPROST 0.005% OPHTH SOLN 2.5ML BOTTLE OU SCH (22:00)
[2023-03-14] MEDS: CEFTRIAXONE 2 GM in DEXTROSE 5%-WATER 100 ML IVPB SCH (10:23)
[2023-03-14] MEDS: PANTOPRAZOLE 40 MG TABLET PO SCH (10:24)
[2023-03-14] MEDS: METOPROLOL TARTRATE 25 MG TABLET (FP) PO SCH (10:24)
[2023-03-14] MEDS: APIXABAN 5 MG TABLET PO SCH (10:24)
[2023-03-14 15:26] VITALS: BP 95/66; PULSE 103; RESP 16; TEMP 98
== END 2023-03-14 20:57 | disposition home or self-care (01) ==
LOC: JASUSAT 05:36 → JASU-SURG 05:36 → J8W 21:08 → JASUSAT 21:09 → J8W 03-13 14:22
PROVIDERS: ADMIT Surgery; ATTEND Surgery
PROC: 0DJD8ZZ Inspection of Lower Intestinal Tract, Via Natural or Artificial Opening Endoscopic (ICD-10-PCS; principal; 2023-03-13)
DX: K91.89 Other postprocedural complications and disorders of digestive system (principal)
CPT/HCPCS: 94760; G0378

== ENCOUNTER 2023-03-18 05:26 | Day surgery (SDC) | payer BC, OTHER ==
[2023-03-15 15:03] VITALS: BMI 26.2
[2023-03-18] MEDS ORDERED: PROPOFOL 20 ML ONE (07:37)
[2023-03-18] MEDS ORDERED: MIDAZOLAM HCL 2 MG/2 ML SINGLE DOSE VIAL ONE ×2 (07:37→08:39)
[2023-03-18] MEDS ORDERED: SUCCINYLCHOLINE CHLORIDE 200 MG/10 ML SYRINGE ONE (07:37)
[2023-03-18] MEDS ORDERED: BUPIVACAINE HCL/PF 0.5% (5MG/ML) 10 ML VIAL ONE (08:03)
[2023-03-18] MEDS ORDERED: LACTATED RINGERS SOLUTION 1,000 ML IV SCH (09:30)
[2023-03-18 13:57] VITALS: RESP 20; TEMP 97.8
[2023-03-18 16:20] VITALS: BP 104/60; PULSE 70
== END 2023-03-18 15:30 | disposition home or self-care (01) ==
LOC: JASU-SURG 05:26
PROVIDERS: ATTEND Surgery
PROC: 0DDP8ZX Extraction of Rectum, Via Natural or Artificial Opening Endoscopic, Diagnostic (ICD-10-PCS; principal; 2023-03-18 08:00)
DX: K91.89 Other postprocedural complications and disorders of digestive system (principal)
CPT/HCPCS: 94760

== ENCOUNTER 2023-04-09 03:51 | Day surgery (SDC) | payer BC, OTHER ==
[2023-04-08 10:08] VITALS: BMI 22.3
[2023-04-09] MEDS ORDERED: PROPOFOL 20 ML ONE ×2 (07:47→08:21)
[2023-04-09] MEDS ORDERED: LIDOCAINE HCL/PF 2% SDV 5ML VIAL ONE (07:47)
[2023-04-09] MEDS ORDERED: MIDAZOLAM HCL 2 MG/2 ML SINGLE DOSE VIAL ONE (07:47)
[2023-04-09] MEDS ORDERED: ONDANSETRON 4 MG/2 ML VIAL ONE (08:22)
[2023-04-09] MEDS ORDERED: ONDANSETRON 4 MG/2 ML VIAL IVPUSH PRN (09:01)
[2023-04-09] MEDS ORDERED: ACETAMINOPHEN 1000 MG/100 ML BAG IVPB PRN (09:01)
[2023-04-09] MEDS ORDERED: LACTATED RINGERS SOLUTION 1,000 ML IV SCH (09:15)
[2023-04-09] MEDS ORDERED: ACETAMINOPHEN 500 MG TABLET (FP) PO SCH (09:15)
[2023-04-09] MEDS ORDERED: APIXABAN 5 MG TABLET PO SCH (10:00)
[2023-04-09] MEDS ORDERED: PANTOPRAZOLE 40 MG TABLET PO SCH (10:00)
[2023-04-09 11:02] VITALS: BP 98/67; PULSE 58; RESP 18
[2023-04-09 11:25] VITALS: TEMP 97.8
[2023-04-09] MEDS ORDERED: LATANOPROST 0.005% OPHTH SOLN 2.5ML BOTTLE OU SCH (22:00)
== END 2023-04-09 11:25 | disposition home or self-care (01) ==
LOC: JASU-SURG 03:51
PROVIDERS: ATTEND Surgery
PROC: 0DJD8ZZ Inspection of Lower Intestinal Tract, Via Natural or Artificial Opening Endoscopic (ICD-10-PCS; principal; 2023-04-09 08:00)
DX: K91.89 Other postprocedural complications and disorders of digestive system (principal)
CPT/HCPCS: 94760

== ENCOUNTER 2023-06-25 04:15 | Inpatient (IN) | payer BC, OTHER ==
[2023-06-24 14:36] VITALS: BMI 25.4
[~2023-06-25 04:15] MED LIST: cefOXitin SODIUM 1 GM VIAL (RESTRICTED TO ID) IVPB ONE
[2023-06-25] MEDS ORDERED: PROPOFOL 20 ML ONE (08:21)
[2023-06-25] MEDS ORDERED: MIDAZOLAM HCL 2 MG/2 ML SINGLE DOSE VIAL ONE (08:21)
[2023-06-25] MEDS ORDERED: CEFOXITIN SODIUM 1 GM IVPB ONE (08:23)
[2023-06-25] MEDS ORDERED: NOREPINEPHRINE BITARTRATE 4 MG/4 ML ML IV ONE (08:28)
[2023-06-25] MEDS ORDERED: VASOPRESSIN 20 UNITS/ML VIAL IV ONE (08:35)
[2023-06-25] MEDS ORDERED: ESMOLOL HCL 100,000 MCG/10 ML VIAL ONE (08:36)
[2023-06-25] MEDS ORDERED: cefOXitin SODIUM 2 GM VIAL (RESTRICTED TO ID) IVPB ONE (09:15)
[2023-06-25] MEDS ORDERED: HYDROmorphone HCl 2 MG/ML VIAL ONE (09:34)
[2023-06-25] MEDS ORDERED: ONDANSETRON 4 MG/2 ML VIAL ONE (09:44)
[2023-06-25] MEDS ORDERED: DEXAMETHASONE SOD PHOSPHATE 4 MG/1 ML VIAL ONE (09:44)
[2023-06-25] MEDS ORDERED: SUGAMMADEX SODIUM 200 MG/2 ML VIAL ONE (09:55)
[2023-06-25] MEDS ORDERED: ONDANSETRON 4 MG/2 ML VIAL IVPUSH PRN ×2 (11:00→11:05)
[2023-06-25] MEDS ORDERED: LATANOPROST 0.005% OPHTH SOLN 2.5ML BOTTLE OU SCH ×2 (11:30→21:15)
[2023-06-25] MEDS ORDERED: oxyCODONE HCL 5 MG TABLET PO PRN (12:06)
[2023-06-25] MEDS ORDERED: ROCURONIUM BROMIDE 50 MG/5 ML SYRINGE ONE (12:52)
[2023-06-25] MEDS: LACTATED RINGERS SOLUTION 1,000 ML IV SCH (14:00)
[2023-06-25] MEDS: ACETAMINOPHEN 1000 MG/100 ML BAG IVPB SCH ×2 (16:54→22:16)
[2023-06-25] MEDS ORDERED: HEPARIN NA (PORCINE) 5,000 UNITS/ML 1ML VIAL SQ ONE (22:00)
[2023-06-25] MEDS: LATANOPROST 0.005% OPHTH SOLN 2.5ML BOTTLE OU SCH (22:16)
[2023-06-26] MEDS: ACETAMINOPHEN 1000 MG/100 ML BAG IVPB SCH (04:07)
[2023-06-26] MEDS ORDERED: ACETAMINOPHEN 1000 MG/100 ML BAG IVPB ONE (08:50)
[2023-06-26 08:53] LABS: HEMATOCRIT 36.9 % (32.4-45.2); HEMOGLOBIN 12.1 GM/dL (10.7-15.3); MCH 29.1 pg (25.7-33.7); MCHC 32.6 g/dl (32.0-36.0); MEAN CELL VOLUME 89.3 fl (80-96); MEAN PLT VOLUME 6.9 fl (7.5-11.1); PLATELET COUNT 265 10^3/uL (134-434); RBC 4.14 M/mm3 (3.60-5.2); RDW 16.9 % (11.6-15.6); WHITE BLOOD COUNT 12.5 K/mm3 (4.0-10.0)
[2023-06-26 08:59] LABS: INR 1.08 (0.83-1.09); PROTHROMBIN TIME (PATIENT) 12.5 SEC (9.7-13.0)
[2023-06-26 09:14] LABS: POTASSIUM 4.4 mmol/L (3.5-5.1)
[2023-06-26 09:19] LABS: CALCIUM 9.3 mg/dL (8.5-10.1)
[2023-06-26 09:20] LABS: BLOOD UREA NITROGEN 14.8 mg/dL (7-18)
[2023-06-26 09:22] LABS: CREATININE 0.7 mg/dL (0.55-1.3)
[2023-06-26] MEDS: AMIODARONE HCL 200 MG TABLET PO SCH (09:44)
[2023-06-26] MEDS: PANTOPRAZOLE 40 MG TABLET PO SCH (09:44)
[2023-06-26] MEDS: RIVAROXABAN 20 MG TABLET PO SCH ×2 (09:44→09:52)
[2023-06-26] MEDS: ACETAMINOPHEN 500 MG TABLET (FP) PO SCH ×2 (09:45→17:50)
[2023-06-26] MEDS: LACTATED RINGERS SOLUTION 1,000 ML IV SCH (16:48)
[2023-06-26] MEDS ORDERED: RIVAROXABAN 20 MG TABLET PO SCH (18:00)
[2023-06-26] MEDS: LATANOPROST 0.005% OPHTH SOLN 2.5ML BOTTLE OU SCH (21:11)
[2023-06-27] MEDS: ACETAMINOPHEN 500 MG TABLET (FP) PO SCH ×2 (01:41→09:49)
[2023-06-27 08:45] LABS: BASO % 0.3 % (0-2.0); EOS % 1.4 % (0-4.5); LYMPH % 18.5 % (8-40); MCH 29.5 pg (25.7-33.7); MCHC 33.2 g/dl (32.0-36.0); MEAN CELL VOLUME 88.9 fl (80-96); MEAN PLT VOLUME 6.9 fl (7.5-11.1); NEUT % 72.8 % (42.8-82.8); PLATELET COUNT 267 10^3/uL (134-434); RBC 4.05 M/mm3 (3.60-5.2); RDW 17.6 % (11.6-15.6); WHITE BLOOD COUNT 8.3 K/mm3 (4.0-10.0)
[2023-06-27 08:58] LABS: POTASSIUM 3.8 mmol/L (3.5-5.1)
[2023-06-27 09:09] LABS: TOT PROT 5.8 g/dl (6.4-8.2)
[2023-06-27 09:17] LABS: CALCIUM 9.2 mg/dL (8.5-10.1)
[2023-06-27 09:18] LABS: ALBUMIN 2.8 g/dl (3.4-5.0); BLOOD UREA NITROGEN 14.4 mg/dL (7-18); MAGNESIUM 1.9 mg/dL (1.8-2.4)
[2023-06-27 09:21] LABS: CREATININE 0.8 mg/dL (0.55-1.3)
[2023-06-27 09:22] LABS: BILIRUBIN,TOTAL 0.9 mg/dL (0.2-1)
[2023-06-27] MEDS: AMIODARONE HCL 200 MG TABLET PO SCH (09:42)
[2023-06-27] MEDS: PANTOPRAZOLE 40 MG TABLET PO SCH (09:42)
[2023-06-27 12:02] VITALS: TEMP 98.1
[2023-06-27 15:50] VITALS: BP 111/67; PULSE 81; RESP 18
== END 2023-06-27 16:09 | disposition home or self-care (01) | DRG 331 ==
LOC: J2C 04:15 → J8W 16:25
PROVIDERS: ADMIT Surgery; ATTEND Nurse Practitioner Acute Care
PROC: 0DBB0ZZ Excision of Ileum, Open Approach (ICD-10-PCS; 2023-06-25)
PROC: 0DSB0ZZ Reposition Ileum, Open Approach (ICD-10-PCS; 2023-06-25)
PROC: 0DJD8ZZ Inspection of Lower Intestinal Tract, Via Natural or Artificial Opening Endoscopic (ICD-10-PCS; principal; 2023-06-25 10:30)
DX: Z43.2 Encounter for attention to ileostomy (principal); K58.9 Irritable bowel syndrome, unspecified; I48.91 Unspecified atrial fibrillation; Z86.718 Personal history of other venous thrombosis and embolism
CPT/HCPCS: 36415; 80048; 80053; 83735; 85025; 85027; 85610; 86870; 86880; 86902; 86922; 88307-TC; 94760; J1644